=== PATIENT | female | born 1990 | race Caucasian/White ===

== ENCOUNTER 2023-06-15 10:55 | Outpatient (CLI) | payer BC, SELFPAY | END 2023-06-15 10:56 | disposition home or self-care (01) | PROVIDERS: PCP Nurse Practitioner Family; Visit Provider Nurse Practitioner Family | DX: Z00.00 Encounter for general adult medical examination without abnormal findings (principal); R20.2 Paresthesia of skin; M79.601 Pain in right arm; M79.602 Pain in left arm | CPT/HCPCS: 82607; 82947; 84443 ==

== ENCOUNTER 2023-12-03 13:39 | Outpatient (CLI) | payer BC, SELFPAY ==
--- OUTSIDE RECORDS SUMMARY | 2023-12-03 13:46 | XMS_ITS | Referral Summary ---
Author Name Unknown Organization [facility] Address [address] [place] [address] Care Team Providers Care Retail Wireless Associate Name Role Phone Tk Pisano M.D. Primary Care Provider [phone] [phone] Source Comments Patient records contain information from all sites at [facility]. For routine questions regarding patient records, call [phone] during business hours, M-F 8:00 AM - 5:00 PM Central Time. Record requests for emergency care only can be directed to [phone] at any time.[facility] Allergies Active Allergy Reactions Criticality Noted Date Comments Amoxicillin Hives (Reselect Reaction) Low 03/02/2011 Converted from Generic Allergy: Amoxicillin Peanut Hives (Reselect Reaction) Low 06/16/2017 throat becomes scratchy with eating peanut butter when living in [place] Penicillins Hives (Reselect Reaction) Low 03/02/2011 Medications Medication Sig Dispensed Refills Start Date End Date Status valACYclovir (VALTREX) 1000 mg tablet TAKE TWO TABLETS BY MOUTH EVERY 12 HOURS FOR ONE DAY ONLY. START AT ONSET OF COLD SORE SYMPTOMS 12 tablet 4 06/19/2022 Active Sprintec, 28, 0.25-35 mg-mcg per tablet TAKE ONE TABLET BY MOUTH EVERY DAY 84 tablet 4 05/29/2023 Active Active Problems Problem Noted Date Diagnosed Date Herpes Simplex Labialis 05/08/2020 Overview: 04/2020: Rare occurrences. Carpal Tunnel Syndrome Bilateral 03/12/2020 Resolved Problems Problem Noted Date Diagnosed Date Resolved Date Pain Shoulder Right 05/10/2020 05/29/20 21 Overview: 04/2020: Ortho, possible labrum. Start with PT, consider MRI 04/2020: Right shoulder overhead throwing pain x 6 months. Plays volleyball, softball. Ortho consult. Subdermal Contraceptive Device Status 05/08/2020 06/18/2022 Overview: 03/2019 Nexplanon Placed. Abnormal Laboratory Results 05/08/2020 05/29/2021 Overview: 10/2019: Hep B Core Total Ab Positive Hep B Surf ab Positive Hep B surf ag negative Hep B core IgM negative 04/2020: Confirmed w/ GI-- she likely has a false positive hep B test or less likely a resolved prior hep B infection. Can't likely donate blood. Could consider Hep B DVA testing (would be truly positive if patient had hep B infection in the past few years. If years ago, may not be positive). Prevailing wisdom is that a resolved hep B infection doesn't impact future health. 10/2019: Turned away from blood donation for hep B screening positive. Came to [facility] [place] more testing. Immunizations Name Administration Dates Next Due 4vHPV (discontinued) 01/25/2010,08/27/2009,06/27 DTaP (Infanrix, Tripedia) 04/28/1997,,1992,1991,1992 HepA Adult 11/14/2015 HepA Pediatric/Adolescent 03/28/2009 HepB, Unspecified 04/28/1997,10/04/1996,09/01/19 96 Hib (PRP-OMP) (PedvaxHIB) 07/16/1993,,1992,1991 IPV 04/28/1997, 3,1992,1991 Influenza, Injectable, Quadrivalent 09/10/2020 Influenza, Unspecified 10/07/2019,2014,11/21/2013,2012 MMR 04/28/1997,07/16/1993 SARS-COV-2 (COVID-19) - MODERNA 10/21/2021 Td (Adult), adsorbed 09/06/2003 Tdap 06/30/2013 MAY 07/19/2009,12/03/1995 influenza vaccine quad (FLUZONE/FLUARIX) (6 months and older)(PF) 09/23/2021,09/20/2019,09/25/2018 typhoid vaccine, parenteral (discontinued) 05/19/2016 Social History Tobacco Use Types Packs/Day Years Used Date Smoking Tobacco: Never Smokeless Tobacco: Never Alcohol Use Standard Drinks/Week Comments Yes 2 (1 standard drink = 0.6 oz pur e alcohol) Humiliation, Afraid, Rape, and Kick questionnair e Answer Date Recorded Within the last year, have y ou been afraid of your partner or ex-partner? No 11/06/2022 Within the last year, have y ou been humiliated or emotionally abused in other ways by your partner or ex-partner? No Within the last year, have y ou been kicked, hit, slapped, or otherwise physically hurt by your partner or ex-partner? No 11/06/2022 Within the last year, have y ou been raped or forced to have any kind of sexual activity by your partner or ex-partner? No 11/06/2022 Social Connection and Isolat ion Panel [NHANES] Answer Date Recorded In a typical week, how many times do you talk on the phone with family, friends, or neighbors? More than three times a week 11/06/2022 How often do you get togethe r with friends or relatives? Once a week 11/06/2022 How often do you attend chur or mosque services? 1 to 4 times per year 11/06/2022 Do you belong to any clubs o r organizations such as congregational groups, unions, fraternal or athletic groups, or school groups? Yes 11/06/2022 How often do you attend meet ings of the clubs or organizations you belong to? More than 4 times per year 11/06/2022 Are you , , di vorced, , never , or living with a partner? Living with partner 11/06/2022 AUDIT-C Answer Date Recorded Q1: How often do you have a drink containing alc ohol? 2-4 times a month 11/06/2022 Q2: How many drinks containi ng alcohol do you have on a typical day when you are drinking? 1 or 2 11/06/2022 Q3: How often do you have si x or more drinks on one occasion? Less than monthly 11/06/2022 Overall Financial Resource Strain (CARDIA) Answe r Date Recorded How hard is it for you to pa y for the very basics like food, housing, medical care, and heating? Somewhat hard 11/06/2022 PHQ-2 Answer Date Recorded PHQ-2 Score 0 01/16/2022 [facility] - Occupational Stress Questionnaire Answer Date Recorded Do you feel stress - tense, restless, nervous, or anxious, or unable to sleep at night because your mind is troubled all the time - these days? Not at all 11/06/2022 Exercise Vital Sign Answer Date Recorde d On average, how many days pe r week do you engage in moderate to strenuous exercise (like a brisk walk)? 7 days 11/06/2022 On average, how many minutes do you engage in exercise at this level? 60 min 11/06/2022 Hunger Vital Sign Answer Date Recorded Within the past 12 months, y ou worried that your food would run out before you got the money to buy more. Never true 11/06/20 22 Within the past 12 months, t he food you bought just didn't last and you didn't have money to get more. Never true 11/06/2022 PRAPARE - Transportation Answer Date Re corded In the past 12 months, has l ack of transportation kept you from medical appointments or from getting medications? No 10/23 In the past 12 months, has l ack of transportation kept you from meetings, work, or from getting things needed for daily living? No 11/06/2022 Housing Stability Vital Sign Answer Oziel e Recorded In the last 12 months, was t here a time when you were not able to pay the mortgage or rent on time? No 11/06/2022 In the last 12 months, how many places have you lived? 1 11/06/2022 In the last 12 months, was t here a time when you did not have a steady place to sleep or slept in a mcc (including now)? No 11/06/2022 Nutrition Answer Date Recorded Nutrition: EVOO Fat Source No 11/06 On average, how many serving s of fruits and vegetables do you eat per day (serving size is equal to 1 cup or approximately the size of a tennis ball)? 4-5 11/06/2022 Dental Answer Date Recorded Dental: Regular Dentist Yes 05/28/20 Employment Answer Date Recorded Employment status Employed and actively working without restrictions 11/06/2022 Education Answer Date Recorded What is the highest level of school you have completed or the highest degree you have received? Master's degree (e.g., MA, MS, Armando, MEd, FIELD CARE MANAGER, VLAD) 10/20/2022 Sex and Gender Information Value Date Recorded Sex Assigned at Female 06/07/2018 4:00 PM CDT Gender Identity Female 06/07/2018 4:00 PM CDT Sexual Orientation Straight 06/07/2018 4: 00 PM CDT Last Filed Vital Signs Vital Sign Reading Time Taken Comments Blood Pressure 132/78 09/23/2022 7:54 AM CDT Pulse 56 09/23/2022 7:54 AM CDT Temperature 36.2 ??C (97.2 ??F) 09/23/2022 7:54 AM CD T Respiratory Rate 18 03/12/2020 1:23 PM CDT Oxygen Saturation 99% 01/16/2022 3:35 PM REVENUE AGENT Inhaled Oxygen Concentration - - Weight 85.1 kg (187 lb 9.8 oz) 09/23/2022 7:54 A M CDT Height 178.1 cm (5' 10.12) 09/23/2022 7:54 AM C DT Body Mass Index 26.83 09/23/2022 7:54 AM CDT Plan of Treatment Not on file Care Teams Retail Wireless Associate Relationship Specialty Start Date End Date Tk Pisano M.D. [address] [place] [address] PCP - General 03/02/23
--- OUTSIDE RECORDS SUMMARY | 2023-12-03 13:46 | XMS_ITS | Clinical Summary ---
Author Name Unknown Organization [facility] Address [address] [place] [address] Care Team Providers Care Body Shop Mechanic Name Role Phone Tk Pisano M.D. Primary Care Provider [phone] Source Comments Patient records contain information from all sites at [facility]. For routine questions regarding patient records, call [phone] during business hours, M-F 8:00 AM - 5:00 PM Central Time. Record requests for emergency care only can be directed to [phone] at any time.[facility] Allergies Active Allergy Reactions Criticality Noted Date [...] for hep B screening positive. [place] [facility] [place]. Immunizations Name Administration Dates [...] older)(PF) 09/23/2021,09/20/2019,09/25/2018 typhoid vaccine, parenteral (discontinued) 05/19/2016 Family History Medical History Relation Name Comments Hyperlipidemia Father Robbin Zaidi Hypertension Father Robbin Zaidi Obesity Father Robbin Zaidi Arthritis Maternal Grandfather Nolan Staloch Parkinsonism Maternal Grandfather Nolan [place] Rheum arthritis Maternal Grandmother Yaakov [place] Alcohol abuse Mother Joanne Zaidi Anxiety disorder Mother Joanne Zaidi Depression Mother Joanne Zaidi Coronary artery disease Paternal Grandfather Michael La tus[place] Diabetes Paternal Grandfather Michael [place] Seizures Paternal Grandfather Michael Zaidi Breast cancer Paternal Grandmother Charleen Zaidi 65 Coronary artery disease Paternal Grandmother Charleen [place] Migraines Paternal Grandmother Charleen Zaidi Relation Name Status Comments Father Robbin [place] Maternal Grandfather Nolan Santosloch Maternal Grandmother Yaakov [place] Mother Joanne Zaidi Paternal Grandfather Michael Zaidi Paternal Grandmother Charleen Zaidi Social History Tobacco Use Types Packs/Day Years [...] 11/06/2022 How often do you attend chur ch or confucianist services? 1 to 4 times per year 11/06/2022 Do you belong to any clubs o r organizations such as protestant groups, unions, fraternal or athletic groups, or [...] Answer Date Recorded PHQ-2 Score 0 01/16/2022 [facility]ational [facility] Questionnaire Answer Date Recorded [...] place to sleep or slept in a halfway (including now)? No 11/06/2022 Nutrition Answer Date Recorded Nutrition: EVOO Fat Source No 11/06 On average, how many serving s of fruits and vegetables do you eat per day (serving size is equal to 1 cup or approximately the size of a tennis ball)? 4-5 11/06/2022 Dental Answer Date Recorded Dental: Regular Dentist Yes 05/28/20 21 Employment Answer Date Recorded Employment status Employed and actively working without restrictions 11/06/2022 Education Answer Date Recorded What is the highest level of school you have completed or the highest degree you have received? Master's degree (e.g., MA, MS, Armando, MEd, HIGH SCHOOL MATH TEACHER, VLAD) 10/20/2022 Sex and Gender Information Value [...] CDT Oxygen Saturation 99% 01/16/2022 3:35 PM CLIENT SERVER PROGRAMMER Inhaled Oxygen Concentration - - Weight 85.1 kg (187 lb 9.8 oz) 09/23/2022 7:54 A M CDT Height 178.1 cm (5' 10.12) 09/23/2022 7:54 AM C DT Body Mass Index 26.83 09/23/2022 7:54 AM CDT Plan of Treatment Health Maintenance Due Date Last Done Comments Cervical Cancer Screening 06/19/20232021, 06/19/2022, 05/30/2021, Additional history exists COVID-19 Vaccine ( season) 2023 09/24/2022, 10/21/2021, 02/14/2021, Additional history exists Influenza Vaccine (#1) 2023 , 09/23/2021, 09/10/2020, Additional history exists Depression Screening (Annual PHQ-2) 11/23/2023 DTaP,Tdap,and Td Vaccines (8 - Td or Tdap) 06/15/2033 06/15/2023, 06/30/2013, 09/06/2003, Additional history exists Hepatitis B Vaccines Completed 04/28/1997, 10/04/1996, 09/01/1996 HPV Vaccines Completed 01/25/2010, 03/2009, 06/27/2009 HIV Screening Completed 05/08/2020, 03/23, 06/07/2018 Hepatitis C Screening Completed 05/08/2020 Pneumococcal vaccine (0-64 years) Aged Out No longer eligible based on patient's age to complete this topic Care Teams Body Shop Mechanic Relationship Specialty Start Date End Date Tk Pisano M.D. [address] [place] [phone] PCP - General 03/02/23
--- OUTSIDE RECORDS SUMMARY | 2023-12-03 13:47 | XMS_ITS | Encounter Summary ---
Author Name Unknown Organization [facility] Address [address] [place] [address] Care Team Providers Care Information Clerk Brokerage Name Role Phone Tk Pisano M.D. Primary Care Provider [phone] [phone] Reason for Referral * Outpatient (Routine) - Authorized Specialty Diagnoses / Procedures Referred By Fred t Referred To Contact Family Medicine Tk Pisano M.D. [address] [place] [address] [facility] Referral ID Status Reason Start Date Expiration Date V isits Requested Visits Authorized [id number] Authorized 06/02/2023 06/01/2026 1 1 Encounter Details Date Type Department Care Team (Late st Contact Info) Description 06/02/2023 Orders Only [facility] Tk Pisano M.D. [address] [place] [address] Social History Tobacco Use Types Packs/Day Years [...] often do you attend chur ch or uatsdin services? 1 to 4 times per year 11/06/2022 Do you belong to any clubs o r organizations such as yazidi groups, unions, fraternal or athletic groups, or [...] Answer Date Recorded PHQ-2 Score 0 01/16/2022 [facility] of Occupat ional Health - Occupational Stress [...] place to sleep or slept in a fpc (including now)? No 11/06/2022 Nutrition Answer Date [...] Master's degree (e.g., MA, MS, Armando, MEd, ENTERPRISE SOFTWARE DEVELOPER, VLAD) 10/20/2022 Sex and Gender Information Value Date Recorded Sex Assigned at Female 06/07/2018 4:00 PM CDT Gender Identity Female 06/07/2018 4:00 PM CDT Sexual Orientation Straight 06/07/2018 4: 00 PM CDT documented as of this encounter Plan of Treatment Scheduled Referrals Name Type Priority Associated Diagnoses Orde r Schedule Family Medicine office visit (clinic) Outpatient Referral Routine Expected: 06/16/2023, Expires: 11/29/2023 documented as of this encounter Visit Diagnoses Not on filedocumented in this encounter Care Teams Information Clerk Brokerage Relationship Specialty Start Date End Date Tk Pisano M.D. [address] [place] [phone] PCP - General 03/02/23 documented as of this encounter
--- OUTSIDE RECORDS SUMMARY | 2023-12-03 13:47 | XMS_ITS ---
Author Name Unknown Organization [facility] Address [address] [place] [address] Care Team Providers Care Office Correspondent Name Role Phone Unavailable Unavailable Unavailable Surgery Details Not on file Complications Check Surgery Details section. Procedure Estimated Blood Loss Check Surgery Details section. Procedure Findings Check Surgery Details section. Procedure Specimens Taken Check Surgery Details section.
--- OUTSIDE RECORDS SUMMARY | 2023-12-03 13:47 | XMS_ITS | Encounter Summary ---
Author Name Unknown Organization [facility] Address [address] [place] [address] Care Team Providers Care Patient Care Technician Name Role Phone Michelle Ramos M.D. Primary Care Provider [phone] Reason for Visit * Reason Onset Date Comments Vomiting/Diarrhea 01/10/2023 Encounter Details Date Type Department Care Team (Late st Contact Info) Description 01/10/2023 Nurse Triage Department of Family Medicine, [facility], in [address] [phone] Paider, Tanesha Armendariz R.N. [address] [place] [phone] Vomiting/Diarrhea Social History Tobacco Use Types Packs/Day Years [...] How often do you attend chur or hindu services? 1 to 4 times per year 11/06/2022 Do you belong to any clubs o r organizations such as pentecostalism groups, unions, fraternal or athletic groups, or [...] Answer Date Recorded PHQ-2 Score 0 01/16/2022 [facility] of Occupat ional Health - Occupational Stress [...] place to sleep or slept in a fdc (including now)? No 11/06/2022 Nutrition Answer Date [...] Master's degree (e.g., MA, MS, Armando, MEd, AUTOMOTIVE SALES ASSOCIATE, VLAD) 10/20/2022 Sex and Gender Information Value Date Recorded Sex Assigned at Female 06/07/2018 4:00 PM CDT Gender Identity Female 06/07/2018 4:00 PM CDT Sexual Orientation Straight 06/07/2018 4: 00 PM CDT documented as of this encounter Miscellaneous Notes * Telephone Encounter - Paider, Tanesha Armendariz R.N. - 01/10/2023 2:52 PM CONSULTING INTERN Chief Complaint / Reason for Call Patient is a 32 y.o. female calling regarding Vomiting/Diarrhea. 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 She had vomiting for the first 24 hours followed by abdominal cramping and loose stools since. Present for: 6 days Home cares tried: None noted Calling to request: Advice The recommended disposition is No disposition on file.. Reason for Disposition MILD-MODERATE diarrhea (e.g., 1-6 times / day more than normal) Protocols used: [id number] Care Advice Patient/Caregiver understands and will follow care advice?: Yes, able to teach back HOME CARE: * You should be able to treat this at home. REASSURANCE AND EDUCATION - DIARRHEA: * Diarrhea may caused by a virus ('stomach flu') or a bacteria. Diarrhea is one of the body's way of getting rid of germs. * Certain foods (e.g., dairy products, supplements like Ensure) can also trigger diarrhea. * In some people, the exact cause is never found. * Staying well-hydrated is the most important thing if you have diarrhea. From what you have told me, it sounds like you are not severely dehydrated at this point. * Here is some general care advice that should help. FLUID THERAPY DURING MILD TO MODERATE DIARRHEA: * Drink more fluids, at least 8 to 10 cups daily. One cup equals 8 oz (240 ml). * WATER: For mild to moderate diarrhea, water is often the best liquid to drink. You should also eat some salty foods (e.g., potato chips, pretzels, saltine crackers). This is important to make sure you are getting enough salt, sugars, and fluids to meet your body's needs. * SPORTS DRINKS: You can also drink half-strength sports drinks (e.g., Gatorade, Powerade) to help treat and prevent dehydration. Mix the sports drink half and half with water. * Avoid caffeinated beverages. Reason: Caffeine is mildly dehydrating. * Avoid alcohol beverages (e.g., beer, wine, hard liquor). * Avoid carbonated soft drinks (soda) as these can make your diarrhea worse. FOOD AND NUTRITION DURING MILD TO MODERATE DIARRHEA: * Maintaining some food intake during episodes of diarrhea is important. * Begin with boiled starches / cereals (e.g., potatoes, rice, noodles, wheat, oats) with a small amount of salt to taste. * You can also eat bananas, yogurt, crackers, soup. * Eat smaller meals and snacks more often during the day rather than 3 larger meals. * As the diarrhea starts to get better, you can slowly return to a normal diet. * AVOID milk and dairy products if these make your diarrhea worse. * AVOID greasy, fatty or spicy foods. DIARRHEA MEDICINE - LOPERAMIDE (IMODIUM AD): * This medicine helps decrease diarrhea. It is available [id number] (OTC) in a drugstore. * Adult dosage: 4 mg (2 capsules) is the recommended first dose. You may take an additional 2 mg (1capsule) after each loose stool. * Maximum dosage: 16 mg per day (8 capsules). * Do not use for more than 2 days. DIARRHEA MEDICINE - LOPERAMIDE - EXTRA NOTES AND WARNINGS: * DO NOT use if there is a fever over 100.4 F (38.0 C) or if there is blood or mucus in the stools. * DO NOT drink tonic water. It can interact with loperamide and may cause a serious heart problems. * Before taking any medicine, read all the instructions on the package. DIARRHEA MEDICINE - BISMUTH SUBSALICYLATE (E.G., KAOPECTATE, PEPTO-BISMOL): * This medicine can help reduce diarrhea, vomiting, and abdominal cramping. It is available [id number]-tyt-yunmnml (OTC) in a drugstore. * Adult dosage: Take two tablets or two tablespoons by mouth every hour (if diarrhea continues) to a maximum of 8 doses in a 24 hour period. * Do not use for more than 2 days. DIARRHEA MEDICINE - BISMUTH SUBSALICYLATE - EXTRA NOTES AND WARNINGS: * May cause a temporary darkening of stool and tongue. * Do not use if allergic to aspirin. * Do not use in . * Before taking any medicine, read all the instructions on the package. CONTAGIOUSNESS: * Wash your hands after using the bathroom. * Wash your hands before fixing or eating food. * If your work is cooking, handling, serving, or preparing food, then you should not work until Do he diarrhea has completely stopped. Check with your employer before going back to work. * Wash soiled towels, sheets, or clothes separately. * Do not share towels or sheets. * Do not swim for 2 weeks after diarrhea is gone. EXPECTED COURSE: * Viral diarrhea lasts 4 to 7 days. * It is usually worse on days 1 and 2. CALL BACK IF: * Signs of dehydration occur (e.g., no urine over 12 hours, very dry mouth, lightheaded, etc.) * Diarrhea lasts over 7 days * You become worse CARE ADVICE given per Diarrhea (Adult) guideline. ULTING INTERN documented in this encounter Plan of Treatment Not on file documented as of this encounter Visit Diagnoses Not on filedocumented in this encounter Care Teams Patient Care Technician Relationship Specialty Start Date End Date Michelle Ramos M.D. PCP - General Family Medicine 04/06/19 03/01/23 documented as of this encounter
--- OUTSIDE RECORDS SUMMARY | 2023-12-03 13:47 | XMS_ITS | Encounter Summary ---
Author Name Unknown Organization [facility] Address [address] [place] [address] Care Team Providers Care Wrapper Hands Sprayer Name Role Phone Tk Pisano M.D. Primary Care Provider [phone] Reason for Visit * Reason Comments Med Refill Encounter Details Date Type Department Care Team (Late st Contact Info) Description 05/27/2023 Refill Department of Family Medicine, [facility], in [address] [phone] Michelle Ramos M.D. [facility] [place] [phone] Med Refill Social History Tobacco Use Types Packs/Day Years [...] week 11/06/2022 How often do you attend [facility] or sikh services? 1 to 4 times per year 11/06/2022 Do you belong to any clubs o r organizations such as baptist groups, unions, fraternal or athletic groups, or [...] Answer Date Recorded PHQ-2 Score 0 01/16/2022 [facility] of Occupat ional Health - Occupational Stress [...] place to sleep or slept in a chcf (including now)? No 11/06/2022 Nutrition Answer Date [...] Master's degree (e.g., MA, MS, Armando, MEd, VOCATIONAL COORDINATOR, VLAD) 10/20/2022 Sex and Gender Information Value Date Recorded Sex Assigned at Female 06/07/2018 4:00 PM CDT Gender Identity Female 06/07/2018 4:00 PM CDT Sexual Orientation Straight 06/07/2018 4: 00 PM CDT documented as of this encounter Plan of Treatment Not on file documented as of this encounter Visit Diagnoses Not on filedocumented in this encounter Care Teams Wrapper Hands Sprayer Relationship Specialty Start Date End Date Tk Pisano M.D. [address] [place] [phone] PCP - General 03/02/23 documented as of this encounter
== END 2023-12-03 13:40 | disposition home or self-care (01) ==
PROVIDERS: PCP Nurse Practitioner Family; Visit Provider Obstetrics & Gynecology
DX: Z34.91 Encounter for supervision of normal pregnancy, unspecified, first trimester (principal); Z3A.10 10 weeks gestation of pregnancy
CPT/HCPCS: 84702; 86850; 86900; 86901

== ENCOUNTER 2023-12-04 13:11 | Outpatient (CLI) | payer BC, SELFPAY ==
--- NOTE | 2023-12-04 13:00 | CRLHL7_ITS ---
For Patients: As a result of the Cures Act, medical imaging exams and procedure reports are released immediately into your electronic medical record. You may view this report before your referring provider. If you have questions, please contact your health care provider. INDICATION: Bleeding in early . LMP 10/17/2023. COMPARISON: None. TECHNIQUE: Real-time cobb-scale imaging of the pelvis was performed. FINDINGS: Sonographic imaging demonstrates a single living intrauterine gestation. The embryo has a regular cardiac rate measuring 173 beats per minute. The embryo`s crown-rump length measurement of 3.6 cm corresponds to a gestational age of 10 weeks 3 days with a sonographic due date of 06/28/2024. There is a normal-appearing yolk sac. The placenta has not yet developed. There is a 2.9 x 1.3 x 1.4 cm subchorionic hemorrhage in the right uterus. The right ovary measures 3.0 x 2.1 x 2.0 cm and the left ovary measures 3.0 x 1.7 x 2.1 cm. No free fluid in the cul-de-sac. IMPRESSION: 1. Single living intrauterine gestation with crown rump length 3.6 cm which corresponds to a gestational age of 10 weeks 3 days with a sonographic due date of 06/28/2024. 2. The clinical gestational age by LMP is 6 weeks 6 days. 3. Small to moderate sized subchorionic hemorrhage. Dictated by Sravani Subramanian MD @ 12/06/2023 12:11:58 AM (Electronically Signed)
== END 2023-12-04 13:12 | disposition home or self-care (01) ==
LOC: US 13:12
PROVIDERS: PCP Nurse Practitioner Family; Visit Provider Advanced Practice Midwife
DX: O20.9 Hemorrhage in early pregnancy, unspecified (principal); Z3A.01 Less than 8 weeks gestation of pregnancy
CPT/HCPCS: 76817; 86592; 86703; 86704; 86706; 86762; 86787; 86803; 86850; 86900; 86901; 87086; 87340; 87491; 87591

== ENCOUNTER 2024-02-02 14:46 | Outpatient (CLI) | payer BC, SELFPAY ==
--- NOTE | 2024-02-02 15:00 | US_ITS ---
Patient: DORCAS VARGAS Facility:?[facility] Patient ID:?[id number] Site Patient ID:?[id number]. Site :?1990 Study:?US-OB Pelvis OB>14WKS-02/02/2024 4:31:12 PM Ordering Physician:Mayda Chow Final Report: INDICATION: Evaluate anatomy. COMPARISON: 12/04/2023 TECHNIQUE: Real time cobb scale imaging of the fetus was performed as well as color Doppler analysis of the umbilical vessels. FINDINGS: Sonographic imaging demonstrates a single living intrauterine gestation. Fetus demonstrates a regular cardiac rate of 152 beats per minute. Fetus has a cephalic position. The placenta lies anteriorly without evidence of placenta previa. The placenta is bilobed. Placental edge 7.2 cm from the internal cervical os. Amniotic fluid volume appears normal. Single deepest vertical pocket: 4.0 cm. The cervix is closed and measures 3.9 cm in length. The composite ultrasound gestational age is calculated at 19 weeks 3 days with an estimated sonographic due date of 06/25/2024. The estimated weight is 289 grams which lies at the 68th %. The following biometric measurements were obtained: Biparietal diameter: 4.5 cm/19 weeks 5 day 80th% Head circumference: 17.0 cm/19 weeks 4 days 72nd% Abdominal circumference: 13.9 cm/19 weeks 2 days 56th% Femur length: 3.0 cm/19 weeks 3 days 57th% The HC/AC ratio measures: 1.22 range (1.08-1.26) On anatomic survey, there is a normal appearance of the cerebral ventricles, cavum septi pellucidi, cisterna magna and cerebellum. The nose, lips, and facial profile appear normal. The cervical, thoracic and lumbar spine are well visualized and appear normal. There is a normal four-chamber heart view and the left and right ventricular outflow tracts appear normal. The diaphragm and stomach appear normal. The kidneys and bladder also appear normal. There is a normal three-vessel cord and cord insertion site. The four extremities appear normal. IMPRESSION: Normal OB ultrasound exam with concordance of clinical and sonographic dating. No intrinsic abnormalities noted on anatomic survey. Dictated by Alexander Baltazar MD @ 02/03/2024 9:34:07 AM Signed by:?Alexander Baltazar MD @02/03/2024 9:34:07 AM (Electronic Signature)
== END 2024-02-02 14:47 | disposition home or self-care (01) ==
LOC: US 14:47
PROVIDERS: PCP Nurse Practitioner Family; Visit Provider Obstetrics & Gynecology
DX: Z34.92 Encounter for supervision of normal pregnancy, unspecified, second trimester (principal); Z3A.19 19 weeks gestation of pregnancy
CPT/HCPCS: 76805

== ENCOUNTER 2024-03-02 13:49 | Outpatient (CLI) | payer BC, SELFPAY ==
--- OUTSIDE RECORDS SUMMARY | 2024-03-02 13:50 | XMS_ITS | Clinical Summary ---
Author Name Unknown Organization [facility] Address [address] [place] [address] Care Team Providers Care Machinist Wood Name Role Phone Tk Pisano M.D. Primary Care Provider [phone] [phone] Source Comments Patient records contain information from all sites at [facility]. For routine questions regarding patient records, call [phone] during business hours, M-F 8:00 AM - 5:00 PM Central Time. Record requests for emergency care only can be directed to [phone] at any time.[facility] Allergies Active Allergy Reactions Criticality Noted Date Comments Amoxicillin Hives (Reselect Reaction) Low 03/02/2011 Converted from Generic Allergy: Amoxicillin Peanut Hives (Reselect Reaction) Low 06/16/2017 throat becomes scratchy with eating peanut butter when living in [place] Penicillins Hives (Reselect Reaction) Low 03/02/2011 [...] for hep B screening positive. Came to [facility] for more testing. Encounters Date Type Department Care Team Description 02/23/2024 Orders Only [facility] PCP TH MNT Tk Pisano M.D. 01/18/2024 Orders Only Division of Gastroenterology in [place], [place] [address] [place] [address] Kushal Conti M.D. Genetic Susceptibility To Disease from Last 3 Months Immunizations Name Administration Dates Next Due 4vHPV (discontinued) 01/25/2010,08/27/2009,06/27 DTaP (Infanrix, Tripedia) 04/28/1997,,1992,1991,1992 HepA Adult 11/14/2015 HepA Pediatric/Adolescent 03/28/2009 HepB, Unspecified 04/28/1997,10/04/1996,09/01/19 96 Hib (PRP-OMP) (PedvaxHIB) 07/16/1993,,1992,1991 IPV 04/28/1997, 3,1992,1991 Influenza, Injectable, Quadrivalent 09/10/2020 Influenza, Unspecified 10/07/2019,2014,11/21/2013,2012 MMR 04/28/1997,07/16/1993 SARS-COV-2 (COVID-19) - MODERNA(Discontinued) 10/21/2021 Td (Adult), adsorbed 09/06/2003 Tdap 06/30/2013 MAY 07/19/2009,12/03/1995 influenza vaccine quad (FLUZONE/FLUARIX) (6 months and older)(PF) 09/23/2021,09/20/2019,09/25/2018 typhoid vaccine, parenteral (discontinued) 05/19/2016 Family History Medical History Relation Name Comments Hyperlipidemia Father Robbin Zaidi Hypertension Father Robbin Zaidi Obesity Father Robbin Zaidi Arthritis Maternal Grandfather Nolan [place] Parkinsonism Maternal Grandfather Nolan [place] Rheum arthritis Maternal Grandmother Yaakov [place] Alcohol abuse Mother Joanne Zaidi Anxiety disorder Mother Joanne Zaidi Depression Mother Joanne Zaidi Coronary artery disease Paternal Grandfather Michael La t[place] Diabetes Paternal Grandfather Michael [place] Seizures Paternal Grandfather Michael Zaidi Breast cancer Paternal Grandmother Charleen Zaidi 65 Coronary artery disease Paternal Grandmother Charleen [place] Migraines Paternal Grandmother Charleen Zaidi Relation Name Status Comments Father Robbin Zaidi Maternal Grandfather Nolan Garciach Maternal Grandmother Yaakov Garciach Mother Joanne Latusek Paternal Grandfather Michael Latusek Paternal Grandmother Charleen Zaidi Social History Tobacco [...] week 11/06/2022 How often do you attend [facility] or jehovah's witness services? 1 to 4 times per year 11/06/2022 Do you belong to any clubs o r organizations such as sikhism groups, unions, fraternal or athletic groups, or [...] Answer Date Recorded PHQ-2 Score 0 01/16/2022 [facility] of Occupat ional Health - Occupational Stress [...] place to sleep or slept in a detention (including now)? No 11/06/2022 Nutrition Answer Date [...] Master's degree (e.g., MA, MS, Armando, MEd, CUSTOM SKI MAKER, VLAD) 10/20/2022 Sex and Gender Information Value [...] CDT Oxygen Saturation 99% 01/16/2022 3:35 PM HOME ENERGY RATER Inhaled Oxygen Concentration - - Weight 85.1 [...] age to complete this topic Care Teams Machinist Wood Relationship Specialty Start Date End Date Tk Pisano M.D. [address] [place] [address] PCP - General 03/02/23
--- OUTSIDE RECORDS SUMMARY | 2024-03-02 13:51 | XMS_ITS | Encounter Summary ---
Author Name Unknown Organization [facility] Address [address] [place] [address] Care Team Providers Care Construction Representative Name Role Phone Tk Pisano M.D. Primary Care Provider [phone] [phone] Reason for Referral * Outpatient (Routine) - Authorized Specialty Diagnoses / Procedures Referred By Fred t Referred To Contact Family Medicine Tk Pisano M.D. [address] [place] [address] [facility] Referral ID Status Reason Start Date Expiration Date V isits Requested Visits Authorized [id number] Authorized 02/23/2024 08/24/2025 1 1 Encounter Details Date Type Department Care Team (Late st Contact Info) Description 02/23/2024 Orders Only [facility] PCP [facility] MNT Tk Pisano M.D. [address] [place] [address] Social History Tobacco Use Types [...] often do you attend chur ch or buddhist services? 1 to 4 times per year 11/06/2022 Do you belong to any clubs o r organizations such as sabianist groups, unions, fraternal or athletic groups, or [...] Answer Date Recorded PHQ-2 Score 0 01/16/2022 [facility] [place] of Occupat ional Health - Occupational Stress [...] place to sleep or slept in a [place] care facility (including now)? No 11/06/2022 Nutrition Answer Date [...] Master's degree (e.g., MA, MS, Armando, MEd, GROUP ACTIVITIES AIDE, VLAD) 10/20/2022 Sex and Gender Information Value Date Recorded Sex Assigned at Female 06/07/2018 4:00 PM CDT Gender Identity Female 06/07/2018 4:00 PM CDT Sexual Orientation Straight 06/07/2018 4: 00 PM CDT documented as of this encounter Plan of Treatment Scheduled Referrals Name Type Priority Associated Diagnoses Orde r Schedule Family Medicine office visit (clinic) Outpatient Referral Routine Expected: 03/08/2024, Expires: 08/21/2024 documented as of this encounter Visit Diagnoses Not on filedocumented in this encounter Care Teams Construction Representative Relationship Specialty Start Date End Date Tk Pisano M.D. [address] [place] [phone] PCP - General 03/02/23 documented as of this encounter
--- OUTSIDE RECORDS SUMMARY | 2024-03-02 13:51 | XMS_ITS | Referral Summary ---
Author Name Unknown Organization [facility] Address [address] [place] [address] Care Team Providers Care Supervisor Quality Control Name Role Phone Tk Pisano M.D. Primary Care Provider [phone] [phone] Source Comments Patient records contain information from all sites at [facility]. For routine questions regarding patient records, call [phone] during business hours, M-F 8:00 AM - 5:00 PM Central Time. Record requests for emergency care only can be directed to [phone] at any time.[facility] Encounters Date Type Department Care Team Description 02/23/2024 Orders Only [facility] Tk Cooper M.D. 01/18/2024 Orders Only Division of Gastroenterology in [place], [place] [address] [place] [address] Kushal Conti M.D. Genetic Susceptibility To Disease from Last 3 Months Allergies Active Allergy Reactions Criticality Noted Date Comments Amoxicillin Hives (Reselect Reaction) Low 03/02/2011 Converted from Generic Allergy: Amoxicillin Peanut Hives (Reselect Reaction) Low 06/16/2017 throat becomes scratchy with eating peanut butter when living in [place] Penicillins Hives (Reselect Reaction) Low 03/02/2011 [...] Resolved Date Pain Shoulder Right 05/10/2020 05/29/20 Overview: 04/2020: Ortho, possible labrum. Start with [...] for hep B screening positive. Came to [facility] for more testing. Immunizations Name Administration Dates [...] week 11/06/2022 How often do you attend [facility] or yarsanism services? 1 to 4 times per year 11/06/2022 Do you belong to any clubs o r organizations such as rastafari groups, unions, fraternal or athletic groups, or [...] Answer Date Recorded PHQ-2 Score 0 01/16/2022 [facility] of Occupat ional Health - Occupational [...] place to sleep or slept in a alf (including now)? No 11/06/2022 Nutrition Answer Date [...] Master's degree (e.g., MA, MS, Armando, MEd, SKIP MINER BLASTING, VLAD) 10/20/2022 Sex and Gender Information Value [...] CDT Oxygen Saturation 99% 01/16/2022 3:35 PM LEVEL VIAL SETTER Inhaled Oxygen Concentration - - Weight 85.1 kg (187 lb 9.8 oz) 09/23/2022 7:54 A M CDT Height 178.1 cm (5' 10.12) 09/23/2022 7:54 AM C DT Body Mass Index 26.83 09/23/2022 7:54 AM CDT Plan of Treatment Not on file Care Teams Supervisor Quality Control Relationship Specialty Start Date End Date Tk Pisano M.D. [address] [place] [phone] PCP - General 03/02/23
--- OUTSIDE RECORDS SUMMARY | 2024-03-02 13:51 | XMS_ITS ---
Author Name Unknown Organization [facility] Address [address] [place] [address] Care Team Providers Care Bonding And Composite Fabricator Name Role Phone Unavailable Unavailable Unavailable Surgery Details Not on file Complications Check Surgery Details section. Procedure Estimated Blood Loss Check Surgery Details section. Procedure Findings Check Surgery Details section. Procedure Specimens Taken Check Surgery Details section.
--- OUTSIDE RECORDS SUMMARY | 2024-03-02 13:51 | XMS_ITS | Encounter Summary ---
Author Name Unknown Organization [facility] Address [address] [place] [address] Care Team Providers Care Life Science Technician Name Role Phone Tk Pisano M.D. Primary Care Provider [phone] [phone] Encounter Details Date Type Department Care Team (Late st Contact Info) Description 01/18/2024 Orders Only Division of Gastroenterology in [place], [place] [address] [place] [address] Kushal Conti M.D. [address] [place] [address] Genetic Susceptibility To Disease Social History Tobacco Use Types Packs/Day Years [...] often do you attend chur ch or amish services? 1 to 4 times per year 11/06/2022 Do you belong to any clubs o r organizations such as jain groups, unions, fraternal or athletic groups, or [...] Answer Date Recorded PHQ-2 Score 0 01/16/2022 [facility] of Occupat ional Health - Occupational [...] place to sleep or slept in a nursing home (including now)? No 11/06/2022 Nutrition Answer Date [...] Master's degree (e.g., MA, MS, Armando, MEd, MERCHANDISE EXECUTION LEADER, VLAD) 10/20/2022 Sex and Gender Information Value Date Recorded Sex Assigned at Female 06/07/2018 4:00 PM CDT Gender Identity Female 06/07/2018 4:00 PM CDT Sexual Orientation Straight 06/07/2018 4: 00 PM CDT documented as of this encounter Plan of Treatment Not on file documented as of this encounter Procedures Procedure Name Priority Date/Time Associated Diagnosis Comments EXT TAPESTRY Routine 08/21/2022 12:00 AM CDT Genetic Susceptibility To Disease documented in this encounter Results * EXT Tapestry (08/21/2022 12:00 AM CDT) Gene Studied BRCA1,BRCA2,MLH1,MSH 2, MSH6,PMS2,EPCAM,APOB,L DLR,LDLRAP1,PCSK9 10/09/2022 12:00 AM [facility] Genetic Disease Assessed Evaluation of 11 genes associated with Hereditary Breast and Ovarian Cancer, Dunn Syndrome and Familial Hypercholesterolemia. 10/09/2022 12:00 AM [facility] Genetic Analysis Overall Interpretation Negative results through Tapestry do not replace diagnostic testing for patients with a personal or family history of cancer/hypercholestero lemia due to limitations with methodology. Consider a referral to a genetic counselor for diagnostic testing if warranted. 10/09/2022 12:00 AM [facility] Genetic Analysis Report See Tapestry PDF Report No actionable gene changes were detected in the genes that cause Familial Hypercholesterolemia. The genes tested for this condition were APOB, LDLR, LDLRAP1, and PCSK9.No actionable gene changes were detected in the genes that cause Hereditary Breast and Ovarian Cancer. The genes tested for this condition were BRCA1 and BRCA2.No actionable gene changes were detected in the genes that cause Dunn Syndrome. The genes tested for this condition were MLH1, MSH2, MSH6, PMS2 and EPCAM. DNA extracted from this individual's sample was captured and enriched using a custom set of reagents (Odysii+ chemistry). Targeted regions were sequenced using an Illumina DNA sequencing system. Your sequence was matched to a modified version of the [place] standard reference genome (GRCh38). Variant calling was completed using a customized version of [employer]'s Zumboxq software, requiring 20x coverage for validated variant calls. Copy Number Variants (CNVs) were called using a proprietary bioinformatics pipeline that compared the coverage profile of your sample with the coverage profiles of other reference set samples. [facility] then analyzed the generated variant data for the exons and 10 bp of flanking intronic sequence (and select tagged intronic variants) of the 11 genes included in Yummy77 from the [employer] Database. Your sample was reviewed for single nucleotide variants (SNVs), indels up to 20 bp in length, and CNVs that are known or predicted to be actionable. NOTE: This assay has limited sensitivity to CNVs smaller than a few exons. APOB, PCSK9, and LDLR interpretation and reporting is specific to the Familial Hypercholesterolemia phenotype. Variants associated with other phenotypes such as Hypobetalipoproteinemi a are not included. Some known complex variants like the inversion of exons 1-7 in the MSH2 gene (Tonja inversion), exons 11-15 of the PMS2 gene, or variants within or immediately adjacent to long homopolymer runs are not analyzed or reported. There are regions that are not covered, such as deep intronic, promoter, and enhancer regions. This assay cannot detect all variants known to increase disease risk. Other clinical diagnostic testing for these conditions could identify variants not detected by this test. If you have had previous testing, these results should be taken into consideration during risk assessments and medical management. 10/09/2022 12:00 AM [facility] Human Reference Sequence Assembly GRCh38 10/09/2022 12:00 AM [facility] Saliva (Mouth) 08/21/2022 Kushal Conti M.D. LAB GENETI C TESTING HEL[facility] [address] [facility], [address] [place] [address], [facility] [address] [facility] [facility], [address] [place] [address] documented in this encounter Visit Diagnoses Diagnosis Genetic Susceptibility To Disease documented in this encounter Care Teams Life Science Technician Relationship Specialty Start Date End Date Tk Pisano M.D. [address] [place] [address] PCP - General 03/02/23 documented as of this encounter
--- NOTE | 2024-03-02 14:00 | US_ITS ---
Patient: DORCAS VARGAS Facility:?[facility] Patient ID:?[id number] Site Patient ID:?[id number]. Site :?1990 Study:?US-OB Pelvis OB F/U SUBOPTIMAL VIEWS-03/02/2024 2:42:00 PM Ordering Physician:DANIELA TOMAS Final Report: INDICATION: Follow-up anatomy COMPARISON: 02/02/2024 TECHNIQUE: Real time cobb scale imaging of the fetus was performed. FINDINGS: Sonographic imaging demonstrates a single living intrauterine gestation. Fetus demonstrates a regular cardiac rate of 141 beats per minute. Fetus has a vertex position. The placenta lies anteriorly. Amniotic fluid volume appears normal. Single deepest vertical pocket: 6.1 cm. Normal profile. There is a normal four-chamber heart view and the left and right ventricular outflow tracts appear normal. IMPRESSION: Normal heart and profile. Dictated by Alexander Baltazar MD @ 03/03/2024 10:17:28 AM Signed by:?Alexander Baltazar MD @03/03/2024 10:17:28 AM (Electronic Signature)
== END 2024-03-02 13:50 | disposition home or self-care (01) ==
LOC: US 13:49
PROVIDERS: PCP Nurse Practitioner Family; Visit Provider Physician Assistant
DX: Z34.90 Encounter for supervision of normal pregnancy, unspecified, unspecified trimester (principal)
CPT/HCPCS: 76816

== ENCOUNTER 2024-04-06 14:44 | Outpatient (CLI) | payer BC, SELFPAY ==
--- OUTSIDE RECORDS SUMMARY | 2024-04-22 08:29 | XMS_ITS | Encounter Summary ---
Author Organization [facility] Address [address] [place] [address] Care Team Providers Care Drive Worker Name Role Phone Tk Pisano M.D. Primary Care Provider [phone] [phone] Reason for Referral * Outpatient (Routine) - Authorized Specialty Diagnoses / Procedures Referred By Fred t Referred To Contact Family Medicine Tk Pisano M.D. [address] [place] [address] [facility] Referral ID Status Reason Start Date Expiration Date V isits Requested Visits Authorized [id number] Authorized 02/23/2024 08/24/2025 1 1 Encounter Details Date Type Department Care Team (Late st Contact Info) Description 02/23/2024 Orders Only [facility] PCP HLTH MNT Tk Pisano M.D. [address] [place] [address] Social History Tobacco Use Types [...] often do you attend chur ch or scientologist services? 1 to 4 times per year 11/06/2022 Do you belong to any clubs o r organizations such as faith groups, unions, fraternal or athletic groups, or [...] Answer Date Recorded PHQ-2 Score 0 01/16/2022 [facility] of Occupat ional Health - Occupational [...] place to sleep or slept in a longterm (including now)? No 11/06/2022 Nutrition Answer Date [...] Master's degree (e.g., MA, MS, Armando, MEd, LAYOUT DESIGNER, VLAD) 10/20/2022 Sex and Gender Information [...] on filedocumented in this encounter Care Teams Drive Worker Relationship Specialty Start Date End Date Tk Pisano M.D. [address] [place] [phone] PCP - General 03/02/23 documented as of this encounter
--- OUTSIDE RECORDS SUMMARY | 2024-04-22 08:29 | XMS_ITS | Referral Summary ---
Author Organization [facility] Address [address] [place] [address] Care Team Providers Care Parts Sales Representative Name Role Phone Tk Pisano M.D. Primary Care Provider [phone] [phone] Source Comments Patient records contain information from all sites at [facility]. For routine questions regarding patient records, call [phone] during business hours, M-F 8:00 AM - 5:00 PM Central Time. Record requests for emergency care only can be directed to [phone] at any time.[facility] Encounters Date Type Department Care Team Description 02/23/2024 Orders Only [facility] PCP TH MNT Tk Pisano M.D. from Last 3 Months Allergies Active Allergy Reactions Criticality Noted Date Comments Amoxicillin Hives (Reselect Reaction) Low 03/02/2011 Converted from Generic Allergy: Amoxicillin Peanut Hives (Reselect Reaction) Low 06/16/2017 throat becomes scratchy with eating peanut butter when living in [place] Penicillins Hives (Reselect Reaction) Low 03/02/2011 [...] B screening positive. Came to [facility] for more testing. Immunizations Name Administration Dates [...] How often do you attend chur or pentecostalism services? 1 to 4 times per year 11/06/2022 Do you belong to any clubs o r organizations such as anabaptist groups, unions, fraternal or athletic groups, or [...] Answer Date Recorded PHQ-2 Score 0 01/16/2022 [facility] of Occupat ional [facility] - Occupational Stress Questionnaire Answer Date Recorded [...] Master's degree (e.g., MA, MS, Armando, MEd, TROLLEY CLEANER, VLAD) 10/20/2022 Sex and Gender Information Value [...] CDT Oxygen Saturation 99% 01/16/2022 3:35 PM TECHNICIAN PREVENTATIVE MEDICINE Inhaled Oxygen Concentration - - Weight 85.1 [...] Ramos M.D. LAB MICROBIOLOGY - GENERAL ORDERABLES [facility] [address] [place] [address], [facility] ECLR [facility] [place] [address] * HIV-1/-2 Ag and Ab Screen, Plasma [...] P.A. LAB MICRO BIOLOGY - BLOOD ORDERABLES [facility] [address] [place] [address], [facility] ECLR [facility] [place] [address] * HCV Ab Scrn w/Reflex to HCV PCR, Serum (05/08/2020 2:07 PM CDT) HCV Ab Screen, S Negative Negative 05/09/20 2:20 AM CDT ECLR Comment: Biotin has been identified by the whiting can worker as a potential interfering substance. ??Higher concentrations of biotin may be found in multivitamins, hair/nail supplements, and workout supplements. ??If the result does not match clinical observations, repeat testing after patient refrains from the use of supplements for at least 12 hours. Blood (Blood, Venous) 05/08/2020 2:07 PM CDT 05/08/2020 9:42 PM CDT Narrative [facility] - 05/09/2020 2:20 AM CDT Specimen Information: Specimen ID: [id number] Specimen Type: Blood Specimen Collection Start Date: 05/08/2020 ??2:07 PM Specimen Received Date: 05/08/2020 ??9:42 PM Specimen ID: [id number] Specimen Type: Blood Specimen Collection Start Date: 05/08/2020 ??2:07 PM Specimen Received Date: 05/08/2020 ??9:42 PM Mary Beth Martinez P.A.-C.AKaren LAB MICRO BIOLOGY - BLOOD ORDERABLES [facility] [address] [place] [address], [place] ECLR [facility] [place] [address] [place] [address] from Last 3 Months or Most Recently Relevant to Health Maintenance Care Teams Parts Sales Representative Relationship Specialty Start Date End Date Tk Pisano M.D. [address] [place] [address] PCP - General 03/02/23
--- OUTSIDE RECORDS SUMMARY | 2024-04-22 08:29 | XMS_ITS ---
Author Organization [facility] Address [address] [place] [address] Care Team Providers Care Energy Trader Name Role Phone Unavailable Unavailable Unavailable Surgery Details Not on file Complications Check Surgery Details section. Procedure Estimated Blood Loss Check Surgery Details section. Procedure Findings Check Surgery Details section. Procedure Specimens Taken Check Surgery Details section.
--- OUTSIDE RECORDS SUMMARY | 2024-04-22 08:29 | XMS_ITS | Clinical Summary ---
Author Organization [facility] Address [address] [place] [address] Care Team Providers Care Education Liaison Name Role Phone Tk Pisano M.D. Primary Care Provider [phone] [phone] Source Comments Patient records contain information from all sites at [facility]. For routine questions regarding patient records, call [phone] during business hours, M-F 8:00 AM - 5:00 PM Central Time. Record requests for emergency care only can be directed to [phone] at any time.[facility] Allergies Active Allergy Reactions Criticality Noted Date [...] for hep B screening positive. Came to [facility] for more testing. Encounters Date Type Department [...] week 11/06/2022 How often do you attend [facility] or episcopalian services? 1 to 4 times per year 11/06/2022 Do you belong to any clubs o r organizations such as episcopal groups, unions, fraternal or athletic groups, or [...] Answer Date Recorded PHQ-2 Score 0 01/16/2022 [facility] of Occupat ional Health - [...] place to sleep or slept in a penitentiary (including now)? No 11/06/2022 Nutrition Answer Date [...] Master's degree (e.g., MA, MS, Armando, MEd, CHISEL MORTISER OPERATOR, VLAD) 10/20/2022 Sex and Gender Information Value [...] CDT Oxygen Saturation 99% 01/16/2022 3:35 PM AWAKE OVERNIGHT MONITOR Inhaled Oxygen Concentration - - Weight 85.1 [...] Ramos M.D. LAB MICROBIOLOGY - GENERAL ORDERABLES [facility] [address] [place] [address], [facility] ECLR [place] [address] * HIV-1/-2 Ag and Ab Screen, Plasma (05/08/2020 2:07 PM CDT) Pathologist [facility] HIV Ag/Ab Screen, P Negative Negative 05/09/2020 [...] P.A. LAB MICRO BIOLOGY - BLOOD ORDERABLES [facility] [address] [place] [address], [facility] ECLR [facility] [place] [address] * HCV Ab Scrn w/Reflex to HCV PCR, Serum (05/08/2020 2:07 PM CDT) HCV Ab Screen, S Negative Negative 05/09/20 20 2:20 AM CDT ECLR Comment: Biotin has been identified by the ore bridge operator as a potential interfering substance. ??Higher concentrations of biotin may be found in multivitamins, hair/nail supplements, and workout supplements. ??If the result does not match clinical observations, repeat testing after patient refrains from the use of supplements for at least 12 hours. Blood (Blood, Venous) 05/08/2020 2:07 PM CDT 05/08/2020 9:42 PM CDT Narrative [facility] - 05/09/2020 2:20 AM CDT Specimen Information: Specimen ID: [id number] Specimen Type: Blood Specimen Collection Start Date: 05/08/2020 ??2:07 PM Specimen Received Date: 05/08/2020 ??9:42 PM Specimen ID: [id number] Specimen Type: Blood Specimen Collection Start Date: 05/08/2020 ??2:07 PM Specimen Received Date: 05/08/2020 ??9:42 PM Marcia Vance P.A.-C., P.A. LAB MICRO BIOLOGY - BLOOD ORDERABLES [facility] [address] [place] [address], [place] ECLR [facility] [place] [address] [place] [address] from Last 3 Months or Most Recently Relevant to Health Maintenance Care Teams Education Liaison Relationship Specialty Start Date End Date Tk Pisano M.D. [address] [place] [phone] PCP - General 03/02/23
--- OUTSIDE RECORDS SUMMARY | 2024-04-22 08:30 | XMS_ITS | Encounter Summary ---
Author Organization [facility] Address [address] [place] [address] Care Team Providers Care Section Laborer Name Role Phone Tk Pisano M.D. Primary Care Provider [phone] [phone] Encounter Details Date Type Department Care Team (Late st Contact Info) Description 01/18/2024 Orders Only Division of Gastroenterology in [place], [place] [address] [place] [address] Kushal Conti M.D. [address] [place] [address] Genetic Susceptibility To Disease Social History Tobacco [...] often do you attend chur ch or taoist services? 1 to 4 times per year 11/06/2022 Do you belong to any clubs o r organizations such as taoist groups, unions, fraternal or athletic groups, or [...] Answer Date Recorded PHQ-2 Score 0 01/16/2022 [facility] of Occupat ional Health - Occupational [...] Master's degree (e.g., MA, MS, Armando, MEd, HR ASSOCIATE, VLAD) 10/20/2022 Sex and Gender Information [...] BRCA1,BRCA2,MLH1,MSH 2, MSH6,PMS2,EPCAM,APOB,L DLR,LDLRAP1,PCSK9 10/09/2022 12:00 AM REVENUE CYCLE CONSULTANT CHAN Genetic Disease Assessed Evaluation of 11 genes associated with Hereditary Breast and Ovarian Cancer, Dunn Syndrome and Familial Hypercholesterolemia. 10/09/2022 12:[address] [facility] Genetic Analysis Overall Interpretation Negative results through Tapestry do not replace diagnostic testing for patients with a personal or family history of cancer/hypercholestero lemia due to limitations with methodology. Consider a referral to a genetic counselor for diagnostic testing if warranted. 10/09/2022 12:[address] [facility] Genetic Analysis Report See Tapestry PDF Report [...] enriched using a custom set of reagents (Tunesat+ chemistry). Targeted regions were sequenced using an Illumina DNA sequencing system. Your sequence was matched to a modified version of the buffalo standard reference genome (GRCh38). Variant calling was completed using a customized version of [employer]'s SpeakWorksq software, requiring 20x coverage for validated variant calls. Copy Number Variants (CNVs) were called using a proprietary bioinformatics pipeline that compared the coverage profile of your sample with the coverage profiles of other reference set samples. [facility] [employer] Nation then analyzed the generated variant data for the exons and 10 bp of flanking intronic sequence (and select tagged intronic variants) of the 11 genes included in [place] from the Noxilizer Database. Your sample was reviewed for single [...] assessments and medical management. 10/09/2022 12:00 AM REVENUE CYCLE CONSULTANT CHAN Human Reference Sequence Assembly [id number] 10/09/2022 12:00 AM REVENUE CYCLE CONSULTANT CHAN Saliva (Mouth) 08/21/2022 Kushal Conti M.D. LAB GENETI C TESTING [place] [address] [facility], [address] [place] [address], [facility] CHAN [place] [address] [facility], [address] [place] [address] documented in this encounter Visit Diagnoses Diagnosis Genetic Susceptibility To Disease documented in this encounter Care Teams Section Laborer Relationship Specialty Start Date End Date Tk Pisano M.D. [address] [place] [address] PCP - General 03/02/23 documented as of this encounter
== END 2024-04-06 14:45 | disposition home or self-care (01) ==
LOC: NFLDREF 04-22 08:27
PROVIDERS: PCP Nurse Practitioner Family; Referring Provider Nurse Practitioner Family; Visit Provider Obstetrics & Gynecology
DX: Z34.93 Encounter for supervision of normal pregnancy, unspecified, third trimester (principal)
CPT/HCPCS: 86592

== ENCOUNTER 2024-04-19 18:39 | Outpatient (CLI) | payer BC, SELFPAY ==
--- OUTSIDE RECORDS SUMMARY | 2024-04-19 18:42 | XMS_ITS | Clinical Summary ---
Author Organization [facility] Address [address] [place] [address] Care Team Providers Care Leave Manager Name Role Phone Tk Pisano M.D. Primary Care Provider +1 -[phone] Source Comments Patient records contain information from all sites at [facility]. For routine questions regarding patient records, call [phone] during business hours, M-F 8:00 AM - 5:00 PM Central Time. Record requests for emergency care only can be directed to [phone] at any time.[facility] Allergies Active Allergy Reactions Criticality Noted Date [...] for hep B screening positive. Came to [facility] for more testing. Encounters Date Type Department Care Team Description 02/23/2024 Orders Only [facility] PCP HLTH MNT Tk Pisano M.D. from Last 3 Months Immunizations Name Administration [...] Hypertension Father Robbin Zaidi Obesity Father Robbin [place] Arthritis Maternal Grandfather Nolan Santosloch Parkinsonism Maternal Grandfather Nolan Santoslonidhi Rheum arthritis Maternal Grandmother Yaakov Garciach Alcohol abuse Mother Joanne Zaidi Anxiety disorder Mother Joanne Zaidi Depression Mother Joanne Zaidi Coronary artery disease Paternal Grandfather Michael La t[place] Diabetes Paternal Grandfather Michael [place] Seizures Paternal Grandfather Michael [place] Breast cancer Paternal Grandmother Charleen Zaidi 65 Coronary artery disease Paternal Grandmother Charleen [place] Migraines Paternal Grandmother Charleen [place] Relation Name Status Comments Father Robbin Zaidi Maternal Grandfather Nolan [place] Maternal Grandmother Yaakov Garciach Mother Joanne [place] Paternal Grandfather Michael [place] Paternal Grandmother Charleen Zaidi Social History Tobacco [...] week 11/06/2022 How often do you attend [facility] or islam services? 1 to 4 times per year 11/06/2022 Do you belong to any clubs o r organizations such as mormon groups, unions, fraternal or athletic groups, or [...] Answer Date Recorded PHQ-2 Score 0 01/16/2022 [facility] Occupat ional Health - Occupational [...] place to sleep or slept in a skilled nursing (including now)? No 11/06/2022 Nutrition Answer Date [...] Master's degree (e.g., MA, MS, Armando, MEd, FABRICATION LEAD, VLAD) 10/20/2022 Sex and Gender Information Value [...] CDT Oxygen Saturation 99% 01/16/2022 3:35 PM PIPELINE INTEGRITY ENGINEER Inhaled Oxygen Concentration - - Weight 85.1 [...] on patient's age to complete this topic Procedures Procedure Name Priority Date/Time Associated Diagnosis Comments HPV WITH GENOTYPING, PCR, THINPREP Routine 06/19/2022 10:15 AM CDT HCV AB SCRN W/REFLEX TO HCV PCR, S Routine 05/08/2020 2:07 PM CDT Screening For Venereal Disease HIV-1/-2 AG AND AB SCREEN, PLASMA Routine 05/08/2020 2:07 PM CDT Screening For Venereal Disease from Last 3 Months or Most Recently Relevant to Health Maintenance Results * HPV with Genotyping, PCR, ThinPrep (06/19/2022 10:15 AM CDT) HPV with Genotyping, ThinPrep, PCR Negative Negative 06/20/2022 4:28 PM CDT ECLR Comment: Negative for high risk HPV by nucleic acid amplification. ??The following high risk HPV types were not detected: 16, 18, 31, 33, 35, 39, 45, 51, 52, 56, 58, 59, 66, and 68 Varies 06/19/2022 10:1 5 AM CDT 06/20/2022 11:48 AM CDT Michelle Ramos M.D. LAB MICROBIOLOGY - GENERAL ORDERABLES [facility] [address] [place] [address], [facility] ECLR [facility] [place] [address] * HIV-1/-2 Ag and Ab Screen, Plasma (05/08/2020 2:07 PM CDT) Pathologist [facility] HIV Ag/Ab Screen, P Negative Negative 05/09/2020 10:14 AM CDT ECLR Comment: Negative result does not rule out HIV infection. If exposure to HIV infection occurred <14 days ago, contact the laboratory to request addition of HIV-1 RNA detection / quantification test. HIV-1 p24 Ag Screen, P Negative Negative 05/09/2020 10:14 AM CDT ECLR Comment: Negative result does not rule out HIV infection. If exposure to HIV infection occurred <14 days ago, contact the laboratory to request addition of HIV-1 RNA detection / quantification test. HIV-1 Ab Screen, P Negative Negative 2019 10:14 AM CDT ECLR Comment: Negative result does not rule out HIV infection. If exposure to HIV infection occurred <14 days ago, contact the laboratory to request addition of HIV-1 RNA detection / quantification test. HIV-2 Ab Screen, P Negative Negative 2019 10:14 AM CDT ECLR Comment: Negative result does not rule out HIV infection. If exposure to HIV infection occurred <14 days ago, contact the laboratory to request addition of HIV-1 RNA detection / quantification test. Blood (Blood, Venous) 05/08/2020 2:07 PM CDT 05/08/2020 9:42 PM CDT Marcia Vance P.A.-C., P.A. LAB MICRO BIOLOGY - BLOOD ORDERABLES [facility] [address] [place] [address], [facility] ECLR [facility] [place] [address] * HCV Ab Scrn w/Reflex to HCV PCR, Serum (05/08/2020 2:07 PM CDT) HCV Ab Screen, S Negative Negative 05/09/20 20 2:20 AM CDT ECLR Comment: Biotin has been identified by the web designer developer as a potential interfering substance. ??Higher concentrations of biotin may be found in multivitamins, hair/nail supplements, and workout supplements. ??If the result does not match clinical observations, repeat testing after patient refrains from the use of supplements for at least 12 hours. Blood (Blood, Venous) 05/08/2020 2:07 PM CDT 05/08/2020 9:42 PM CDT Narrative [facility] - 05/09/2020 2:20 AM CDT Specimen Information: Specimen ID: [id number] Specimen Type: Blood Specimen Collection Start Date: 05/08/2020 ??2:07 PM Specimen Received Date: 05/08/2020 ??9:42 PM Specimen ID: [id number] Specimen Type: Blood Specimen Collection Start Date: 05/08/2020 ??2:07 PM Specimen Received Date: 05/08/2020 ??9:42 PM Marcia Vance P.A.-C., P.A. LAB MICRO BIOLOGY - BLOOD ORDERABLES [facility] [address] [place] [address], [place] ECLR [facility] [place] [address] [place] [address] from Last 3 Months or Most Recently Relevant to Health Maintenance Care Teams Leave Manager Relationship Specialty Start Date End Date Tk Pisano M.D. [address] [place] [phone] PCP - General 03/02/23
--- OUTSIDE RECORDS SUMMARY | 2024-04-19 18:42 | XMS_ITS | Encounter Summary ---
Author Organization [facility] Address [address] [place] [address] Care Team Providers Care Family Engagement Specialist Name Role Phone Tk Pisano M.D. Primary Care Provider [phone] [phone] Reason for Referral * Outpatient (Routine) - Authorized Specialty Diagnoses / Procedures Referred By Fred t Referred To Contact Family Medicine Tk Pisano M.D. [address] [place] [address] [facility] Referral ID Status Reason Start Date Expiration Date V isits Requested Visits Authorized [id number] Authorized 02/23/2024 08/24/2025 1 1 Encounter Details Date Type Department Care Team (Late st Contact Info) Description 02/23/2024 Orders Only [facility] PCP HLTH MNT Tk Pisano M.D. [address] [place] [address] Social History Tobacco Use Types [...] often do you attend chur ch or yazidism services? 1 to 4 times per year 11/06/2022 Do you belong to any clubs o r organizations such as restoration groups, unions, fraternal or athletic groups, or [...] Answer Date Recorded PHQ-2 Score 0 01/16/2022 [facility] Occupat ional Health - [...] place to sleep or slept in a senior living (including now)? No 11/06/2022 Nutrition Answer Date [...] Master's degree (e.g., MA, MS, Armando, MEd, POSTMASTER, VLAD) 10/20/2022 Sex and Gender Information Value [...] on filedocumented in this encounter Care Teams Family Engagement Specialist Relationship Specialty Start Date End Date Tk Pisano M.D. [address] [place] [phone] PCP - General 03/02/23 documented as of this encounter
--- OUTSIDE RECORDS SUMMARY | 2024-04-19 18:42 | XMS_ITS ---
Author Organization [facility] Address [address] [place] [address] Care Team Providers Care Stock Shipper Name Role Phone Unavailable Unavailable Unavailable Surgery Details Not on file Complications Check Surgery Details section. Procedure Estimated Blood Loss Check Surgery Details section. Procedure Findings Check Surgery Details section. Procedure Specimens Taken Check Surgery Details section.
--- OUTSIDE RECORDS SUMMARY | 2024-04-19 18:42 | XMS_ITS | Encounter Summary ---
Author Organization [facility] Address [address] [place] [address] Care Team Providers Care Flatbed Driver Name Role Phone Tk Pisano M.D. Primary Care Provider +1 [phone] Encounter Details Date Type Department Care Team (Late st Contact Info) Description 01/18/2024 Orders Only Division of Gastroenterology in [place], [place] [address] [place] [address] Kushal Conti M.D. [address] [place] [address] Genetic Susceptibility To Disease Social History Tobacco [...] often do you attend chur ch or druze services? 1 to 4 times per year 11/06/2022 Do you belong to any clubs o r organizations such as sikh groups, unions, fraternal or athletic groups, or [...] Answer Date Recorded PHQ-2 Score 0 01/16/2022 [facility] of Occupat ional Health - Occupational Stress [...] place to sleep or slept in a snf (including now)? No 11/06/2022 Nutrition Answer Date [...] Master's degree (e.g., MA, MS, Armando, MEd, PATIENT SERVICE ASSOCIATE, VLAD) 10/20/2022 Sex and Gender Information [...] BRCA1,BRCA2,MLH1,MSH 2, MSH6,PMS2,EPCAM,APOB,L DLR,LDLRAP1,PCSK9 10/09/2022 12:00 AM PARTNER MANAGEMENT CONSULTANT CHAN Genetic Disease Assessed Evaluation of 11 genes associated with Hereditary Breast and Ovarian Cancer, Dunn Syndrome and Familial Hypercholesterolemia. 10/09/2022 12:00 AM [facility] Genetic Analysis Overall Interpretation Negative results through Tapestry do not replace diagnostic testing for patients with a personal or family history of cancer/hypercholestero lemia due to limitations with methodology. Consider a referral to a genetic counselor for diagnostic testing if warranted. 10/09/2022 12:00 AM [facility] Genetic Analysis Report See Tapestry PDF Report [...] enriched using a custom set of reagents (Postabon+ chemistry). Targeted regions were sequenced using an Illumina DNA sequencing system. Your sequence was matched to a modified version of the [place] standard reference genome (GRCh38). Variant calling was completed using a customized version of [employer]'s Local Offer Networkq software, requiring 20x coverage for validated variant calls. Copy Number Variants (CNVs) were called using a proprietary bioinformatics pipeline that compared the coverage profile of your sample with the coverage profiles of other reference set samples. [facility] [id number] Media then analyzed the generated variant data for the exons and 10 bp of flanking intronic sequence (and select tagged intronic variants) of the 11 genes included in Octoshape from the Data [employer] Database. Your sample was reviewed for single [...] assessments and medical management. 10/09/2022 12:00 AM PARTNER MANAGEMENT CONSULTANT CHAN Human Reference Sequence Assembly GRCh38 10/09/2022 12:00 AM PARTNER MANAGEMENT CONSULTANT CHAN Saliva (Mouth) 08/21/2022 Kushal Conti M.D. LAB GENETI C TESTING [place] [address] [facility], [address] [place] [address], [facility] CHAN [place] [address] [facility], [address] [place] [address] documented in this encounter Visit Diagnoses Diagnosis Genetic Susceptibility To Disease documented in this encounter Care Teams Flatbed Driver Relationship Specialty Start Date End Date Tk Pisano M.D. [address] [place] [address] PCP - General 03/02/23 documented as of this encounter
--- OUTSIDE RECORDS SUMMARY | 2024-04-19 18:42 | XMS_ITS | Referral Summary ---
Author Organization [facility] Address [address] [place] [address] Care Team Providers Care Recoil Spring Winder Name Role Phone Tk Pisano M.D. Primary Care Provider [phone] [phone] Source Comments Patient records contain information from all sites at [facility]. For routine questions regarding patient records, call [phone] during business hours, M-F 8:00 AM - 5:00 PM Central Time. Record requests for emergency care only can be directed to [phone] at any time.[facility] Encounters Date Type Department Care Team Description 02/23/2024 Orders Only [facility] PCP TH MNT Tk Pisano M.D. from Last 3 Months Allergies Active Allergy Reactions Criticality Noted Date Comments Amoxicillin Hives (Reselect Reaction) Low 03/02/2011 Converted from Generic Allergy: Amoxicillin Peanut Hives (Reselect Reaction) Low 06/16/2017 throat becomes scratchy with eating peanut butter when living in [place] Penicillins Hives (Reselect Reaction) Low 03/02/2011 [...] for hep B screening positive. Came to [facility] for more testing. Immunizations Name Administration Dates [...] How often do you attend chur or moravian services? 1 to 4 times per year 11/06/2022 Do you belong to any clubs o r organizations such as taoism groups, unions, fraternal or athletic groups, or [...] Answer Date Recorded PHQ-2 Score 0 01/16/2022 [facility] Occupat ional [facility] - Occupational Stress Questionnaire Answer Date Recorded [...] place to sleep or slept in a retirement (including now)? No 11/06/2022 Nutrition Answer Date [...] Master's degree (e.g., MA, MS, Armando, MEd, STAGE SET DESIGNER, VLAD) 10/20/2022 Sex and Gender Information Value [...] CDT Oxygen Saturation 99% 01/16/2022 3:35 PM ROCK SINGER Inhaled Oxygen Concentration - - Weight 85.1 kg (187 lb 9.8 oz) 09/23/2022 7:54 A M CDT Height 178.1 cm (5' 10.12) 09/23/2022 7:54 AM C DT Body Mass Index 26.83 09/23/2022 7:54 AM CDT Plan of Treatment Not on file Procedures Procedure Name Priority Date/Time Associated Diagnosis [...] Ramos M.D. LAB MICROBIOLOGY - GENERAL ORDERABLES [facility] [address] [place] [address], [facility] ECLR [facility] [place] [address] * HIV-1/-2 Ag and Ab Screen, Plasma (05/08/2020 2:07 PM CDT) HIV Ag/Ab Screen, P Negative Negative 05/09/2020 [...] P.A. LAB MICRO BIOLOGY - BLOOD ORDERABLES [facility] [address] [place] [address], [facility] ECLR [facility] [place] [address] * HCV Ab Scrn w/Reflex to HCV PCR, Serum (05/08/2020 2:07 PM CDT) HCV Ab Screen, S Negative Negative 05/09/20 2:20 AM CDT ECLR Comment: Biotin has been identified by the quality liaison as a potential interfering substance. ??Higher concentrations of biotin may be found in multivitamins, hair/nail supplements, and workout supplements. ??If the result does not match clinical observations, repeat testing after patient refrains from the use of supplements for at least 12 hours. Blood (Blood, Venous) 05/08/2020 2:07 PM CDT 05/08/2020 9:42 PM CDT Narrative [facility] - 05/09/2020 2:20 AM CDT Specimen Information: Specimen ID: [id number] Specimen Type: Blood Specimen Collection Start Date: 05/08/2020 ??2:07 PM Specimen Received Date: 05/08/2020 ??9:42 PM Specimen ID: [id number] Specimen Type: Blood Specimen Collection Start Date: 05/08/2020 ??2:07 PM Specimen Received Date: 05/08/2020 ??9:42 PM Mary Beth Martinez P.A.-C.AKaren LAB MICRO BIOLOGY - BLOOD ORDERABLES [facility] [address] [place] [address], [place] [address]CL[address] [facility] [place] [address] [place] [address] from Last 3 Months or Most Recently Relevant to Health Maintenance Care Teams Recoil Spring Winder Relationship Specialty Start Date End Date Tk Pisano M.D. [address] [place] [address] PCP - General 03/02/23
[2024-04-23 13:15] LABS: Creatinine Urine 57.9 mg/dL; Total Protein Urine 10 mg/dL
[2024-04-23 14:19] LABS: Collection Time Urine 24 Hours; Total Protein 24 Hour Urine 287.5 mg/Day; Total Volume 24 Hour Urine 2875 ml; Urine Creatinine mg/24 Hour 0 mg/Day
== END 2024-04-19 18:40 | disposition home or self-care (01) ==
PROVIDERS: PCP Nurse Practitioner Family; Visit Provider Registered Nurse
DX: R03.0 Elevated blood-pressure reading, without diagnosis of hypertension (principal)
CPT/HCPCS: 82565; 82570; 84156; 84450; 84460; 84520

== ENCOUNTER 2024-06-01 13:27 | Outpatient (CLI) | payer BC, SELFPAY ==
--- OUTSIDE RECORDS SUMMARY | 2024-06-01 13:30 | XMS_ITS | Encounter Summary ---
Author Organization [facility] Address [address] [place] [address] Care Team Providers Care Sustainability Project Manager Name Role Phone Tk Pisano M.D. Primary Care Provider [phone] [phone] Reason for Referral * Outpatient (Routine) - Authorized Specialty Diagnoses / Procedures Referred By Fred t Referred To Contact Family Medicine Tk Pisano M.D. [address] [place] [address] [facility] Referral ID Status Reason Start Date Expiration Date V isits Requested Visits Authorized [id number] Authorized 02/23/2024 08/24/2025 1 1 Encounter Details Date Type Department Care Team (Late st Contact Info) Description 02/23/2024 Orders Only [facility] Tk Pisano M.D. [address] [place] [address] Social History Tobacco Use Types [...] often do you attend chur ch or sikh services? 1 to 4 times per year 11/06/2022 Do you belong to any clubs o r organizations such as jewish groups, unions, fraternal or athletic groups, or [...] Answer Date Recorded PHQ-2 Score 0 01/16/2022 [facility] of Occupat ional Health - Occupational Stress [...] place to sleep or slept in a half-way (including now)? No 11/06/2022 Nutrition Answer Date [...] Master's degree (e.g., MA, MS, Armando, MEd, HAIR BOILER, VLAD) 10/20/2022 Sex and Gender Information Value [...] on filedocumented in this encounter Care Teams Sustainability Project Manager Relationship Specialty Start Date End Date Tk Pisano M.D. [address] [place] [phone] PCP - General 03/02/23 documented as of this encounter
--- OUTSIDE RECORDS SUMMARY | 2024-06-01 13:30 | XMS_ITS | Referral Summary ---
Author Organization [facility] Address [address] [place] [address] Care Team Providers Care Gaming Commissioner Name Role Phone Tk Pisano M.D. Primary Care Provider [phone] [phone] Source Comments Patient records contain information from all sites at [facility]. For routine questions regarding patient records, call [phone] during business hours, M-F 8:00 AM - 5:00 PM Central Time. Record requests for emergency care only can be directed to [phone] at any time.[facility] Allergies Active Allergy Reactions Criticality Noted [...] [facility]. Immunizations Name Administration Dates [...] often do you attend chur ch or zoroastrianism services? 1 to 4 times per year [...] Answer Date Recorded PHQ-2 Score 0 01/16/2022 [facility] of Occupat ional Health - Occupational Stress [...] place to sleep or slept in a intermediate (including now)? No 11/06/2022 Nutrition Answer Date [...] Master's degree (e.g., MA, MS, Armando, MEd, PARAFFINER, VLAD) 10/20/2022 Sex and Gender Information Value [...] CDT Oxygen Saturation 99% 01/16/2022 3:35 PM CLAY GRINDER Inhaled Oxygen Concentration - - Weight 85.1 [...] Ramos M.D. LAB MICROBIOLOGY - GENERAL ORDERABLES [facility] [address] [place] [address], [facility] ECLR [facility] [place] [address] * HIV-1/-2 Ag and Ab Screen, Plasma [...] P.A. LAB MICRO BIOLOGY - BLOOD ORDERABLES [facility] N[facility] [address] [place] [address], [facility] ECLR [facility] [place] [address] * HCV Ab Scrn w/Reflex to HCV PCR, Serum (05/08/2020 2:07 PM CDT) HCV Ab Screen, S Negative Negative 05/09/20 2:20 AM CDT ECLR Comment: Biotin has been identified by the truck sales manager as a potential interfering substance. ??Higher concentrations of biotin may be found in multivitamins, hair/nail supplements, and workout supplements. ??If the result does not match clinical observations, repeat testing after patient refrains from the use of supplements for at least 12 hours. Blood (Blood, Venous) 05/08/2020 2:07 PM CDT 05/08/2020 9:42 PM CDT Narrative [facility] - 05/09/2020 2:20 AM CDT Specimen Information: Specimen ID: [id number] Specimen Type: Blood Specimen Collection Start Date: 05/08/2020 ??2:07 PM Specimen Received Date: 05/08/2020 ??9:42 PM Specimen ID: [id number] Specimen Type: Blood Specimen Collection Start Date: 05/08/2020 ??2:07 PM Specimen Received Date: 05/08/2020 ??9:42 PM Marcia Vance P.A.-C., P.A. LAB MICRO BIOLOGY - BLOOD ORDERABLES [facility] [address] [place] [address], [place] ECLR [facility] [place] [address] [place] [address] from Last 3 Months or Most Recently Relevant to Health Maintenance Care Teams Gaming Commissioner Relationship Specialty Start Date End Date Tk Pisano M.D. [address] [place] [phone] PCP - General 03/02/23
--- OUTSIDE RECORDS SUMMARY | 2024-06-01 13:30 | XMS_ITS ---
Author Organization [facility] Address [address] [place] [address] Care Team Providers Care Phone Screener Name Role Phone Unavailable Unavailable Unavailable Surgery Details Not on file Complications Check Surgery Details section. Procedure Estimated Blood Loss Check Surgery Details section. Procedure Findings Check Surgery Details section. Procedure Specimens Taken Check Surgery Details section.
--- OUTSIDE RECORDS SUMMARY | 2024-06-01 13:30 | XMS_ITS | Clinical Summary ---
Author Organization [facility] Address [address] [place] [address] Care Team Providers Care Periodontist Name Role Phone Tk Pisano M.D. Primary Care Provider [phone] [phone] Source Comments Patient records contain information from all sites at [facility]. For routine questions regarding patient records, call [phone] during business hours, M-F 8:00 AM - 5:00 PM Central Time. Record requests for emergency care only can be directed to [phone] at any time.[facility] Allergies Active Allergy Reactions Criticality Noted Date [...] for hep B screening positive. Came [place] [facility] [place] more [place]. Immunizations Name Administration Dates [...] Nolan Cleveland Rheum arthritis Maternal Grandmother Yaakov Garciach Alcohol abuse Mother Joanne Zaidi Anxiety disorder Mother Joanne Zaidi Depression Mother Joanne Zaidi Coronary artery disease Paternal Grandfather Michael La tusek Diabetes Paternal Grandfather Michael [place] Seizures Paternal Grandfather Michael Zaidi Breast cancer Paternal Grandmother Charleen Zaidi 65 Coronary artery disease Paternal Grandmother Charleen [place] Migraines Paternal Grandmother Charleen Zaidi Relation Name Status Comments Father Robbin Zaidi Maternal Grandfather Nolan Santosloch Maternal Grandmother Yaakov Garciach Mother Joanne Zaidi Paternal Grandfather Michael Zaidi [...] often do you attend chur ch or mormonism services? 1 to 4 times per year 11/06/2022 Do you belong to any clubs o r organizations such as confucianist groups, unions, fraternal or athletic groups, or [...] PHQ-2 Score 0 01/16/2022 [facility] - Occupational Stress Questionnaire Answer Date [...] Master's degree (e.g., MA, MS, Armando, MEd, BODY AND FENDER MECHANIC APPRENTICE, VLAD) 10/20/2022 Sex and Gender Information Value [...] CDT Oxygen Saturation 99% 01/16/2022 3:35 PM PRESIDENT Inhaled Oxygen Concentration - - Weight 85.1 [...] 2023 09/24/2022, 10/21/2021, 02/14/2021, Additional history exists Depression Screening (Annual PHQ-2) 11/23/2023 Influenza Vaccine (#1) 2024 , 09/23/2021, 09/10/2020, Additional history exists DTaP,Tdap,and Td Vaccines (8 - Td or [...] Ramos M.D. LAB MICROBIOLOGY - GENERAL ORDERABLES [facility] [address] [place] [address], [facility] ECLR [facility] [address] * HIV-1/-2 Ag and Ab Screen, Plasma [...] P.A. LAB MICRO BIOLOGY - BLOOD ORDERABLES Performing Organization Address [facility] Co de Phone Number [facility] [address] [place] [address], [facility] ECLR [facility] [address] * HCV Ab Scrn w/Reflex to HCV PCR, Serum (05/08/2020 2:07 PM CDT) HCV Ab Screen, S Negative Negative 05/09/20 2:20 AM CDT ECLR Comment: Biotin has been identified by the astronomy teacher as a potential interfering substance. ??Higher concentrations of biotin may be found in multivitamins, hair/nail supplements, and workout supplements. ??If the result does not match clinical observations, repeat testing after patient refrains from the use of supplements for at least 12 hours. Blood (Blood, Venous) 05/08/2020 2:07 PM CDT 05/08/2020 9:42 PM CDT Narrative [facility] - 05/09/2020 2:20 AM CDT Specimen Information: Specimen ID: [id number] Specimen Type: Blood Specimen Collection Start Date: 05/08/2020 ??2:07 PM Specimen Received Date: 05/08/2020 ??9:42 PM Specimen ID: [id number] Specimen Type: Blood Specimen Collection Start Date: 05/08/2020 ??2:07 PM Specimen Received Date: 05/08/2020 ??9:42 PM Marcia Vance P.A.-C., P.A. LAB MICRO BIOLOGY - BLOOD ORDERABLES Performing Organization Address City/[facility]/ZIP Co de Phone Number [facility] [address] [facility] [place] [address], [place] ECLR [facility] [place] [address] [place] [address] from Last 3 Months or Most Recently Relevant to Health Maintenance Care Teams Periodontist Relationship Specialty Start Date End Date Tk Pisano M.D. [address] [place] [phone] PCP - General 03/02/23
[2024-06-02 13:41] LABS: Strep B DNA Probe Negative (Negative)
[2024-06-02 13:59] LABS: Strep B Susceptibility Needed? No
== END 2024-06-01 13:28 | disposition home or self-care (01) ==
LOC: NFLDREF 13:27
PROVIDERS: PCP Nurse Practitioner Family; Visit Provider Obstetrics & Gynecology
DX: Z34.93 Encounter for supervision of normal pregnancy, unspecified, third trimester (principal); Z3A.36 36 weeks gestation of pregnancy
CPT/HCPCS: 87081; 87653

== ENCOUNTER 2024-06-28 15:50 | Inpatient (IN) | payer BC, SELFPAY ==
[2024-06-28] VITALS (8 sets, daily range): BP systolic 122–140; BP diastolic 66–80; PULSE 57–66; RESP 16; TEMP 36.7–36.9; O2SAT 99–100
--- NOTE | 2024-06-28 14:36 | US_ITS ---
Patient: DORCAS VARGAS Facility:?[facility] Patient ID:?[id number] Site Patient ID:?[id number]. Site :?1990 Study:?US-OB Pelvis OB BPP-06/28/2024 3:37:28 PM Ordering Physician:?Felicia Ge Final Report: Indication: random variable decelerations noted VU: 06/28/2024 Technique: Real-time sonographic images of the pelvis were obtained transabdominally using grayscale, color, and Doppler imaging. Comparison: 03/02/2024 Findings: A single intrauterine is present in cephalic position. Cardiac activity in the fetus is demonstrated at 134 BPM. Placenta: Anterior. No previa or abruption. Amniotic Fluid: ANDREA 5.9 cm, single deepest pocket measures 1.5 centimeter initially, then 3.2 cm likely due to movement. Biophysical profile: Breathin/2 Movement: 2/2 Tone: 2/2 Fluid volume: 0/2 Total: 04/30 Impression: 1. Single living intrauterine gestation in cephalic presentation, with heartrate 134 BPM. 2. Anterior placenta without previa or abruption. 3. ANDREA 5.9 cm, deepest vertical pocket measures 3.2 centimeter, which is on the lower limit of normal. 4. BPP 06/30. Findings discussed with Marsha bazan RN at 4 p.m. on 06/28/2024. Dictated by Cristhian Mike MD @ 06/28/2024 3:59:38 PM ----- ADDENDUM ----- Findings should read: Biophysical profile: Breathin/2 Movement: 2/2 Tone: 2/2 Fluid volume: 2/2 Total: 06/30 Dictated by Cristhian Mike MD @ Jun 28 2024 4:00PM Signed by:?Cristhian Mike MD @06/28/2024 3:59:38 PM (Electronic Signature)
--- NOTE | 2024-06-28 16:18 | P.LDBA_ITS ---
Subjective History of Present Illness Date Seen: 06/28/24 Narrative: Leila is being admitted to Labor and Delivery for induction of labor. She is a 34 year old at 40.0 weeks gestation. Her full history and physical was dictated by Carie Emmanuel CNM on 06/08/24. Please see this for details. She was seen in the clinic today and there were concerns with FHR reactivity, sent over to triage for further monitoring. A BPP was ordered which was 8/8 with ANDREA of 5.9 and SDP of 1.5. This meets the criteria for oligohydramnios. Recommendation is induction, this was discussed with her and she consents to an induction of labor. She is desiring an unmedicated but states with an ind uctions she is open to an epidural if needed. Specific Issues/Plans G 1 P 0 H&P completed 06/08/2024 by Vernon GONZALEZ 1. Bleeding in early . Ultrasound on 12/04/2023 shows subchorionic hemorrhage right of the gestational sac measuring 2.9 x 1.3 x 1.4 cm. 2. Tiny polyp on face of cervix. No treatment needed at this time. Will monitor. 3. History of HTN noted in chart. Per patient report: HTN only briefly while in high school; attributed to anxiety. Was monitored briefly. Never required medication. Hasn't had any issues with HTN for >10+ years. PreE labs NOT performed. * Elevated blood pressure readings at 30 weeks. 154/70 and 144/70. Patient just received news that her cousin's baby is not going to make it. She delivered at 25 weeks gestation. Pre E labs performed. Advised patient to monitor blood pressures once daily over the next week and notify me of readings. If elevated, will consider starting her on an antihypertensive medication. * Normal BUN, creatinine, AST, ALT white blood cell count 11.3. Platelets 186. PC ratio 0.2 * 24 hour urine: Total protein 10mg/dL. P/C: 0.10. Total protein 24 hour: 287.5. 4. Bilobed placenta 5. anatomy ultrasound: Limited view of profile. 3VTV view not appreciated. Follow-up ultrasound in 2 weeks: normal profile and heart Declined genetic testing. Hinduism/culture needs? [] ask at next visit Flu: Completed Covid: Administered 12-04-23 TDAP: 04/19/24 OB - Problem Based A/P Additional Plan (1) Oligohydramnios: Status: Acute (2) Encounter for induction of labor: Status: Acute Plan Assessment:?? at 40.0 weeks gestation?? GBS negative? New diagnosis of oligohydramnios? Labor type:Induction of labor, cervical ripening to start Category 1 FHR pattern.? complicated by: Bleeding in early Hx of HTN-felt to be anxiety related, normal Pre E labs, elevated BP at 30 wks, no further elevation Bilobed placenta Plan:?? * ?Admit to L & D? * IV access: SL * Monitoring per policy: continuous ? * Candidate for analgesia of choice.? Planning unmedicated labor for pain management * Desired waterbirth, new diagnosis of oligohydramnios risks patient out of this option. * Reviewed risks and benefits of IOL with Cook balloon, pitocin vs cytotec/cervadil. Unable to use Cook at this time, cervix closed. Cytotec per protocol to start now. Pitocin to follow if needed. * Monitor blood pressures. No further elevation since 30 week visit at this time. * Patient encouraged to reposition and ambulate to promote physiologic labor and . * Anticipate ? Delivery/Labor/Induction Plan Plan: induction Induction method: per misoprostol protocol OB Exam Physical Exam Vital signs: Temp Pulse Resp BP 98.4 F 66 16 122/66 06/28/24 13:58 06/28/24 13:58 06/28/24 13:58 06/28/24 13:58 Narrative: Vitals Reviewed Constitutional:? Alert and oriented x3 HEENT:? Normocephalic, atraumatic Neck:? Supple Lungs:? Clear to auscultation bilaterally Heart:? Regular rate and rhythm, no murmur, rub or gallop Abdomen:? Soft, nontender, and gravid. Vertex by Best's, confirmed with cervical exam. Extremities:? No edema or erythema Cervix: closed /0%/-4 station/vertex by Best's NST: 135 bpm/moderate variability/+accelerations/-decelerations/rare mild contractions, pt is unaware of them Detailed Labor and Delivery Exam Patient Gravid: Yes
[2024-06-28] MEDS: miSOPROStoL 25 MCG/0.25 TABLET VAGINAL ×2 (16:30→20:36)
[2024-06-28 22:33] LABS: Basophils Percent Auto 0.3 % (0.0-3.0); Eosinophils Percent Auto 0.7 % (0.0-7.0); Hematocrit 38.8 % (33.0-51.0); Hemoglobin* 13.2 gm/dL (12.0-16.0); Immature Granulocytes Pct Auto 1.4 %; Lymphocytes Percent Auto 18.2 % (20-44); Mean Corpuscular HGB Conc 34 gm/dL (32-36); Mean Corpuscular Hemoglobin 31 pg (26-34); Mean Corpuscular Volume 92 fL (80-100); Monocytes Percent Auto 9.7 % (0.0-11.0); Neutrophils Percent Auto 69.7 % (42.0-72.0); Platelet Count* 174 K/uL (140-440); RDW Coefficient of Variation % 12.2 % (11.5-15.5)
[2024-06-28 23:13] LABS: Slide Review Reflex No
[2024-06-29] VITALS (38 sets, daily range): BP systolic 102–156; BP diastolic 51–87; PULSE 56–94; RESP 16–20; TEMP 36.6–37.1; O2SAT 98–100
[2024-06-29] MEDS: miSOPROStoL 25 MCG/0.25 TABLET VAGINAL ×2 (00:36→04:40)
[2024-06-29] MEDS: hydrOXYzine pamoate 25 MG CAPSULE 100 MG PO (00:45)
--- NOTE | 2024-06-29 07:37 | P.OBPN_ITS ---
Subjective Time Seen by Provider: 08:30 Date Seen: 06/29/24 Narrative: On initial assessment at 0730 Leila's contractions were not tracing. Per RN report she was evonne infrequently and not uncomfortable. We discussed options for continuing IOL including a 5th dose of Cytotec, Pitocin titration or cook catheter placement. On cervical exam she was found to be 1/60/high. Discussed that it would be difficult to place Cook but it could be attempted if she desired. It would be reasonable to switch to Pitocin titration given that her cervix if beginning to thin. Also discussed an additional dose of Cytotec and considering either 25mcg or 50mcg. We discussed the risks and benefits of each. She is interested in an additional dose of Cytotec but discussed that would like to get a better tracing of her contraction pattern before deciding on dose. At the time when the next dose was due at 08 she was evonne regularly on the monitor every 2-5 minutes. She states that over the last couple hours contractions have slowly been getting more uncomfortable in her back and lower abdomen but since getting up and moving around they have further increased. Switching to expectant management at this time. Will consider Pitocin titration if contractions decrease in frequency or intensity over the next couple of hours. Objective Vital Signs: Last Vital Signs Temp 98.2 F 06/29/24 04:45 Pulse 56 L 06/29/24 04:45 Resp 16 06/29/24 04:45 BP 126/57 L 06/29/24 04:45 Pulse Ox 99 06/28/24 22:03 Pelvic Exam Dilation (cm): 1 Effacement (%): 60 Station: high Contractions Monitor mode: External Contraction Frequency: 2-5 Contraction pattern: Regular Contraction intensity: Mild Assessment Assessment: induction ongoing Status: Category ll Heart Rate Baseline: 140 Climatology Professor Variability: Moderate (6-25) Monitor Accelerations: Present Monitor Decelerations: Variable (one late noted without recurrence ) Plan Plan: Assessment:?? at 40.1 weeks gestation?? GBS negative? Blood type:?O+ New diagnosis of oligohydramnios? Labor type:Induction of labor, Cytotec x4 doses Category 2 FHR pattern.? complicated by: bleeding in early , distant history of HTN never requiring medications and normal labs, bilobed placenta, oligohydramnios diagnosed at 40.0 weeks Plan:?? * Monitoring per policy: continuous, ? * Candidate for analgesia of choice.? Planning unmedicated labor for pain management * Desired waterbirth, diagnosis of oligohydramnios risks patient out of this option. * Monitor blood pressures. No further elevation since 30 week visit at this time. * Patient encouraged to reposition and ambulate to promote physiologic labor and . * Expectant management. Consider Pitocin titration later if needed. * Anticipate ?
[2024-06-29] MEDS: LACTATED RINGERS 1000 ML 1,000 ML 125 ML IV (16:34)
[2024-06-29] MEDS: OXYTOCIN 30 unit/500 ML in NS 30 UNIT/500 ML BAG IVPB (17:22)
--- NOTE | 2024-06-29 18:27 | P.OBPN_ITS ---
Subjective Time Seen by Provider: 16:30 Date Seen: 06/29/24 Narrative: Leila has continued to contract mostly 2-4 minutes apart but do space out. She has been rating her pain 7/10 all day. She denies leaking fluid and is appreciating good movement. She is agreeable to a cervical exam at this time and found to be 2/80/-2 with cervix posterior. We discussed options for continuing IOL of cook, Pitocin titration and expectant management. Discussed that cook may be difficult to place due to posterior position but possible. With oligohydramnios expectant management is not recommended. She is agreeable to Pitocin titration. She is considering an epidural to be able to rest but wants to see how uncomfortable she gets with Pitocin. Discussed the option of nitrous and IV fentanyl as well. Objective Vital Signs: Last Vital Signs Temp 98.2 F 06/29/24 15:46 Pulse 63 06/29/24 15:45 Resp 20 06/29/24 11:42 BP 119/61 06/29/24 15:45 Pulse Ox 100 06/29/24 11:42 Pelvic Exam Dilation (cm): 2 Effacement (%): 80 Station: -2 Contractions Monitor mode: External Contraction Frequency: 2-4 Contraction pattern: Regular Contraction intensity: Moderate Assessment Assessment: induction ongoing Station: -2 Status: Category ll Heart Rate Baseline: 135 Mcfp Variability: Moderate (6-25) Monitor Accelerations: Present Monitor Decelerations: Variable (occasional variables rare late without recurrence ) Plan Plan: Assessment:?? at 40.1 weeks gestation?? GBS negative? Blood type:?O+ New diagnosis of oligohydramnios? Labor type:Induction of labor, Cytotec x4 doses followed by Pitocin titration Category 2 FHR pattern.? complicated by: bleeding in early , distant history of HTN never requiring medications and normal labs, bilobed placenta, oligohydramnios diagnosed at 40.0 weeks Plan:?? * Monitoring per policy: continuous ? * Candidate for analgesia of choice.? Planning unmedicated labor for pain management but considering an epidural. Candidate for analgesia of choice. * Monitor blood pressures. Vital signs stable. * Patient encouraged to reposition and ambulate to promote physiologic labor and . * Initiate Pitocin titration at this time per policy * Anticipate ?
[2024-06-29] MEDS: LACTATED RINGERS 1000 ML 1,000 ML 999 ML IV ×2 (18:31→20:34)
[2024-06-29] MEDS: fentaNYL 100 MCG/2 ML inj 50 MCG IVP (19:45)
[2024-06-29] MEDS: BUPIVACAINE 0.25% PF 10 ML 10 ML ML EPIDURAL (19:56)
[2024-06-29] MEDS: PHENYLEPHRINE 100 MCG/ML SYRINGE IVP (20:10)
[2024-06-29] MEDS: ROPIVACAINE 0.2% 100 ml 100 ML 12 MG EPIDURAL (20:22)
--- NOTE | 2024-06-29 20:25 | PM.ANBPRC ---
[facility] Medical History Bilateral carpal tunnel syndrome ?G56.03 - Carpal tunnel syndrome, bilateral upper limbs (ICD-10) Hx of eczema ?Z87.2 - Personal history of diseases of the skin and subcutaneous tissue (ICD-10) Hx of migraines ?Z86.69 - Personal history of other diseases of the nervous system and sense organs (ICD-10) History of hypertension ?Z86.79 - Personal history of other diseases of the circulatory system (ICD-10) History of abnormal cervical Pap smear ?Z87.42 - Personal history of other diseases of the female genital tract (ICD-10) Surgical History Hx of LASIK ?Z98.890 - Other specified postprocedural states (ICD-10) History of colposcopy ?Z98.890 - Other specified postprocedural states (ICD-10) History of dental surgery ?Z92.89 - Personal history of other medical treatment (ICD-10) History of tonsillectomy ?Z90.89 - Acquired absence of other organs (ICD-10) Family History Sister Thyroid cancer Father FH: kidney cancer High blood pressure High cholesterol Obesity Maternal Grandmother Arthritis, rheumatoid Heart disease Paternal Grandfather Coronary artery disease Diabetes Seizure disorder Paternal Grandmother Coronary artery disease Breast cancer Migraines Maternal Grandfather Arthritis Parkinsonism Mother Anxiety Alcohol dependence Depression Social History Narrative: . No children. Formal exercise. Non-smoker. Alcohol, rare. No illicit drug use. 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 What is your current living situation?: I presently have a place to live Problems where you live: no known problems In the past 12 months, utilities in danger of being shut off: no In past 12 months, lack of transportation kept you from medical appts, meetings, work, or getting things needed for daily living: no In the past 12 mos, have been you worried that your food would run out before you had money to buy more?: never true In the past 12 mos, the food you bought just didn't last and you didn't have money to buy more?: never true Smoking Status: Never smoker How often does anyone, including family, friends and others, physically hurt you: never How often does anyone, including family, friends and others, insult or talk down to you: never How often does anyone, including family, friends and others, threaten you with harm: never How often does anyone, including family, friends and others, scream or curse at you: never Little interest or pleasure in doing things: not at all Feeling down, depressed, or hopeless: not at all Meds Home Medications and Allergies Home Medications ?Medication ?Instructions ?Recorded ?Confirmed ?Type docosahexaenoic acid 200 mg 200 mg PO DAILY 12/04/23 06/28/24 History capsule ( DHA) valacyclovir 1 gram tablet 2,000 mg PO BID PRN 01/01/24 06/28/24 History Allergies Allergy/AdvReac Type Severity Reaction Status Date / Time amoxicillin Allergy Verified 06/28/24 12:10 Penicillins Allergy Verified 06/28/24 12:10 peanut AdvReac scratchy Verified 06/28/24 12:10 throat Results Labs Labs: Laboratory Results - last 24 hr 06/28/24 06/28/24 22:04 22:23 WBC 11.10 H RBC 4.20 Hgb 13.2 Hct 38.8 MCV 92 MCH 31 MCHC 34 RDW Coeff of Chante 12.2 Plt Count 174 Neut % (Auto) 69.7 Lymph % (Auto) 18.2 L [place] % (Auto) 9.7 Eos % (Auto) 0.7 Baso % (Auto) 0.3 Neut # (Auto) 7.70 H Lymph # (Auto) 2.00 [place] # (Auto) 1.10 H Eos # (Auto) 0.10 Baso # (Auto) 0.00 Abs Immat Gran (auto) 0.20 Imm/Tot Granulo (auto) 1.4 Blood Type O Positive Antibody Screen NEGATIVE Vital Signs Vital Signs: Last Vital Signs Temp 98.2 F 06/29/24 15:46 Pulse 69 06/29/24 20:22 Resp 20 06/29/24 11:42 BP 145/68 H 06/29/24 20:22 Pulse Ox 99 06/29/24 19:39 Weight: 103.504 kg Anesthesia Procedures Epidural Insertion Patient Location: OB Start Time: 07:30 Stop Time: 08:15 Start Date: 06/29/24 Stop Date: 06/29/24 Reason for Block: procedure for pain Patient Position: sitting Performed By: Renuka Rogers Preanesthetic Checklist: IV checked, risks and benefits discussed, monitors and equipment checked, timeout performed and anesthesia consent Prep: chlorhexidine gluconate Monitoring: blood pressure monitoring, continuous pulse oximetry and heart rate Approach: midline Vertebral Space: lumbar (1-5) Epidural Technique: GWEN saline Needle Type: Tuohy needle Injection Technique: continuous catheter Needle gauge: 17 Needle Length (cm): 10 cm Needle Insertion Depth (cm): 7 Catheter Gauge: 19 Catheter Type: multi-orifice Catheter at skin depth (cm): 12 Test Dose Result: negative and lidocaine 1.5% with epinephrine 1 to 200,000
[2024-06-29 22:43] LABS: Hematocrit 37.7 % (33.0-51.0); Hemoglobin* 12.9 gm/dL (12.0-16.0); Mean Corpuscular HGB Conc 34 gm/dL (32-36); Mean Corpuscular Hemoglobin 32 pg (26-34); Mean Corpuscular Volume 92 fL (80-100); Platelet Count* 171 K/uL (140-440); Red Blood Count 4.08 m/uL (4.00-5.20); White Blood Count* 15.75 K/uL (4.50-11.00)
[2024-06-29 22:45] LABS: Slide Review Reflex No
--- NOTE | 2024-06-29 22:51 | P.OBPN_ITS ---
Subjective Date Seen: 06/29/24 Narrative: Leila has continued to receive Pitocin titration. She also received an epidural and is now resting comfortably. She did have blood pressure drops initially after by her and baby have since recovered. Will continue to reposition and support the process. She did have 2 elevated blood pressures after the epidural but have been normal since that time. Labs were collected and are pending. She had SROM with clear fluids. Will monitor VS. Objective Vital Signs: Last Vital Signs Temp 98.2 F 06/29/24 20:59 Pulse 68 06/29/24 22:46 Resp 18 06/29/24 20:59 BP 111/56 L 06/29/24 22:46 Pulse Ox 99 06/29/24 19:39 Pelvic Exam Dilation (cm): 3 Effacement (%): 80 Station: -1 Comments: Per RN exam Contractions Monitor mode: External Contraction Frequency: 1-3 Contraction pattern: Regular Contraction intensity: Moderate Assessment Assessment: induction ongoing Station: -1 Amniotic Membrane Status: SROM Status: Category ll Heart Rate Baseline: 140 [employer] Narcotics [employer] Variability: Moderate (6-25) Monitor Accelerations: Present Monitor Decelerations: Variable (occasional ) Plan Plan: Assessment:?? at 40.1 weeks gestation?? GBS negative? Blood type:?O+ Oligohydramnios? Labor type:Induction of labor, Pitocin titration Category 2 FHR pattern.? Elevated blood pressure x2 15 minutes apart. None since. Labs pending. complicated by: bleeding in early , distant history of HTN never requiring medications and normal labs, bilobed placenta, oligohydramnios diagnosed at 40.0 weeks Plan:?? * Monitoring per policy: continuous ? * Epidural in place. * Monitor vital signs. * Assist patient to reposition to promote physiologic labor and . * Continue Pitocin titration per policy * Anticipate
[2024-06-29 22:54] LABS: Creatinine* 0.5 mg/dL (0.5-1.5); Estimated Glomerular Filt Rate 128 ml/min
[2024-06-29 22:55] LABS: Alanine Aminotransferase* 14 U/L (4-35); Aspartate Amino Transferase* 23 U/L (12-35); Blood Urea Nitrogen* 8 mg/dL (5-24)
[2024-06-29 22:56] LABS: Total Protein Urine 14 mg/dL
[2024-06-29 22:57] LABS: Creatinine Urine 80.7 mg/dL; Protein Creatinine Ratio Urine 0.17 (0-0.19)
[2024-06-30] VITALS (50 sets, daily range): BP systolic 101–153; BP diastolic 53–95; PULSE 61–95; RESP 16–18; TEMP 36.3–37.2; O2SAT 97–100
[2024-06-30] MEDS: LACTATED RINGERS 1000 ML 1,000 ML 125 ML IV (01:22)
[2024-06-30] MEDS: LIDOCAINE 1 % PF 30 ML INJECTION (06:00)
--- NOTE | 2024-06-30 06:17 | W.PM.VAGDE_ITS ---
OB Procedure Vag Delivery Mother Details Mother Details: Leila is a 34 year-old, 1, Para 1, admitted on 06/28/24 at 40.0 Days gestation for IOL for newly diagnosed oligohydramnios. She was induced with Cytotec followed by Pitocin. She received an epidural which accidently and was no longer infusing for part of the 2nd stage. She was bolused but it did not last the entire second stage and she was unmedicated at the end. : 1 Para: 1 Weeks Gestation: 40.2 Admission Date: 06/28/24 Additional Details Amniotic Membrane Status: SROM Amniotic Membrane Rupture Date: 06/29/24 Amniotic Membrane Rupture Time: 22:42 Amniotic Membrane Fluid Description: Clear Analgesia/Anesthesia Type: Epidural Waterbirth: No Pitcoin: Yes Intrapartal Events: Labor Induction and Prolonged 2nd Stage >2.5 Hrs Induction Method: per misoprostol protocol and per pitocin protocol Heart: heart tones during second stage were [] Delivery Details Delivery Date: 06/30/24 Delivery Time: 05:28 Infant Gender: Male Infant Viability: Alive; Heart Rate Present Position at Delivery: OA Delivery Details: Patient was admitted for IOL for newly diagnosed oligohydramnios. She was induced with Cytotec followed by Pitocin. She progressed slowly to complete and pushed for over 4 hours. She made progress during that time. There were variable decels but with quick recovery to baseline. Her epidural became disconnected during the second stage. It was bolused but did not give her complete coverage at the end of pushing. She did not actively push for about 45minutes of the second stage due to that. SROM noted at 2242 with clear fluid. Patient was complete at 0017 and pushing at 0115. of a viable male at 0528 on her back in the bad after pushing in multiple positions. Vertex delivered OA. No nuchal cord or shoulder. Body delivered easily and without incident. passed to mothers abdomen with a vigorous cry. Cord was clamped and cut at 1 minute due to a very short cord. Mom was unable to get baby high than her umbilicus due to this short cord so the option was given to cut it early which she desired. A PGARS were 8 at one minute and 9 at five minutes respectively. Mouth was bulb suctioned. Intact placenta with a 3 vessel cord delivered spontaneously at 0532. The placenta was bilobed and sent to pathology. Fundus firm. 2nd degree identified and repaired in typical fashion. QBL 175 cc. Mother and baby stable; mother plans to breastfeed. weight pending.? 1 Minute Interval Total Score: 8 5 Minute Interval Total Score: 9 Additional Details Shoulder Dystocia: No Placenta Delivery Time: 05:32 Placental Delivery Description: Spontaneous Delivery repair: Vicryl Procedure Done: Global Blood Loss: 175 Laceration: Perineal - 2nd Degree Episiotomy Description: None Blood Loss Measurement Type: QBL Bakri Used: No Sponge/Need Count Correct: Yes Cord Vessel Description: 3 Vessels (very short cord) Event Summary Status: Mother and infant were stable after delivery. Disposition: floor
[2024-06-30] MEDS: IBUPROFEN 600 MG TABLET PO ×3 (06:30→19:34)
--- NOTE | 2024-06-30 06:45 | PM.ANPOST ---
Post Anesthesia Note Post Anesthesia Note Patient seen: Inpatient Respiratory Status: adequate Cardiovascular Status: adequate Mental Status: baseline Pain: adequate Temp: baseline Anesthetic awareness: N/A Complications: none Follow care: none
--- NOTE | 2024-06-30 06:56 | PM.OBPNVD1 ---
OB - PN:Subj Subjective Date Seen: 06/30/24 Narrative: NSVB this morning without complication. Intermittent elevations of BP noted in chart. No CONTRERAS, vision changes, or RUQ pain. Bonding with baby currently. Bleeding post within normal limits. OB - PN: Obj Exam Physical Exam: Vital signs: Temp Pulse Resp BP Pulse Ox 98.0 F 85 18 148/68 H 98 06/30/24 04:03 06/30/24 06:51 06/30/24 05:50 06/30/24 06:51 06/30/24 03:55 Narrative: GENERAL APPEARANCE:? normal affect, alert, no distress MOOD:? appropriate EXTREMITIES:? +3/4 reflexes with 1 beat clonus bilaterally of lower extremities OB - PN: Obj Data Labs Labs: Laboratory Results - last 24 hr 06/29/24 06/29/24 21:52 22:30 WBC 15.75 H RBC 4.08 Hgb 12.9 Hct 37.7 MCV 92 MCH 32 MCHC 34 Plt Count 171 BUN 8 Creatinine 0.5 Estimated GFR 128 AST 23 ALT 14 Urine Creatinine 80.7 Protein/Creatinin Ratio 0.17 Urine Total Protein 14 OB - PN: A/P Delivery Assessment and Plan (1) care and examination of lactating mother: Status: Acute (2) Second degree perineal laceration: Status: Acute (3) Gestational hypertension: Status: Acute Plan Labs completed last evening and normal. No indication of preeclampsia. Anticipate routine care. , may see if needed? Hgb pending. ? GHTN Labs WNL Discharge home with BP cuff if does not already have one?and blood pressures remain labile in the period inpatient. Reviewed signs and symptoms to report. Plan day: 0 Plan: routine care
[2024-06-30] MEDS: ACETAMINOPHEN 500 MG TABLET 1000 MG PO ×3 (08:37→22:44)
[2024-06-30] MEDS: DOCUSATE SODIUM 100 MG CAPSULE PO (08:39)
[2024-07-01] MEDS: IBUPROFEN 600 MG TABLET PO ×3 (01:11→18:35)
[2024-07-01 01:13] VITALS: BP 104/67; PULSE 70; RESP 16; O2SAT 97
[2024-07-01 06:54] LABS: Hemoglobin* 11.4 gm/dL (12.0-16.0)
[2024-07-01 07:39] LABS: Rapid Plasma Reagin (RPR) Non Reactive (Non Reactive)
[2024-07-01] MEDS: ACETAMINOPHEN 500 MG TABLET 1000 MG PO ×3 (08:32→23:38)
[2024-07-01] MEDS: DOCUSATE SODIUM 100 MG CAPSULE PO (08:33)
[2024-07-01 08:54] VITALS: BP 110/70; PULSE 60; RESP 16; TEMP 36.6; O2SAT 96
[2024-07-01 12:00] VITALS: BP 104/73; PULSE 68; RESP 16; O2SAT 96
--- NOTE | 2024-07-01 15:37 | PM.OBDSVD1 ---
DS: Providers Provider Date Seen: 07/01/24 Date of admission: 06/28/24 15:50 Primary care physician: Lakisha Kuhn, BRAID MAKER, DISPATCHER [employer] Admitting Clinician: Joo Duarte CNM Attending Physician on discharge: Tiffanie Mccray CNM DS: Diagnosis Discharge Diagnosis (1) care and examination of lactating mother: Status: Acute (2) Gestational hypertension: Status: Acute (3) Lactating mother: Status: Acute Exam Const: Vital Signs, click to edit/add: Vital Signs - 24 hr 06/30/24 16:47 06/30/24 21:11 07/01/24 01:13 Temperature 97.6 F 97.6 F Pulse Rate [Blood Pressure Cuff] 85 67 70 Respiratory Rate 16 16 16 Blood Pressure [Le ft Arm] 112/72 113/67 104/67 Pulse Oximetry 97 97 Oxygen Delivery Me thod Room Air Room Air Room Air 07/01/24 08:54 07/01/24 12:00 Temperature 98 F Pulse Rate [Blood Pressure Cuff] 60 68 Respiratory Rate 16 16 Blood Pressure [Le ft Arm] 110/70 104/73 Pulse Oximetry 96 96 Oxygen Delivery Me thod Room Air Room Air OB - DS: Summary Hospital Course Hospital Course: Leila is a 34 y.o. G 1 P 1 who was admitted to L & [facility] for induction of labor for oligohydramnios. ?She had a NVD that was uncomplicated. The patient feels well. ?The pain is well controlled with current medications. ?She has no new complaints. ?She is breast feeding and reports things are going well. the patient has done well.? Vitals have been stable.? She has remained afebrile.? Has a good appetite, is tolerating a general diet. ?She is voiding without difficulty.? She is passing gas and has not had a bowel movement.? She is ambulating and denies any dizziness.? Has small amount of rubra lochia. She did initially desire discharge today but encouraged to stay for additional support. Problems: difficulties, GHTN plan: Discharge home with baby. Follow up in 2 weeks and 6 weeks. , may see if needed Hgb 11.4. GHTN diagnosed by elevated BP greater than 4 hours apart Anticipate discharge tomorrow. Peripartum Data delivery method: Vaginal Infant Gender: Male Time Spent with Patient Time attestation: Total time spent providing and/or coordinating discharge services: Discharge Plan Discharge Date of Admission: 06/28/24 15:50 Attending Physician on Admission: Joo Duarte Primary Care Provider: Lakisha Kuhn Discharge Medications: No Action valacyclovir 1 gram tablet 2,000 mg PO BID PRN DHA 200 mg capsule 200 mg PO DAILY Follow Up Appointments: Lakisha Kuhn, BRAID MAKER, DISPATCHER [employer] [Primary Care Provider] -
--- NOTE | 2024-07-01 15:48 | P.OBPN_ITS ---
OB - PN:Subj Subjective Date Seen: 07/01/24 Narrative: Leila is a 34 y.o. G 1 P 1 who was admitted to [facility] & [facility] for induction of labor for oligohydramnios. ?She had a NVD that was uncomplicated. The patient feels well. ?The pain is well controlled with current medications. ?She has no new co mplaints. ?She is breast feeding and reports things are going well. the patient has done well.? Vitals have been stable.? She has remained afebrile.? Has a good appetite, is tolerating a general diet. ?She is voiding without difficulty.? She is passing gas and has not had a bowel movement.? She is ambulating and denies any dizziness.? Has small amount of rubra lochia. She did initially desire discharge today but encouraged to stay for additional support. OB - PN: Obj Exam Physical Exam: Vital signs: Temp Pulse Resp BP Pulse Ox O2 Del Method 98 F 68 16 104/73 96 Room Air 07/01/24 08:54 07/01/24 12:00 07/01/24 12:00 07/01/24 12:00 07/01/24 12:00 07/01/24 12:00 Narrative: GENERAL APPEARANCE:? normal affect, alert, no distress MOOD:? appropriate CHEST:? clear to auscultation HEART:? regular rate and rhythm ABDOMEN:? soft, non-tender the uterine fundus is At Umbilicus, Midline and is appropriate for the stage of recovery. PERINEUM:? mild edema of the perineum, there is a Perineal Laceration, 2nd degree that is healing well. EXTREMITIES:? normal and no edema OB - PN: Obj Data Labs Labs: Laboratory Results - last 24 hr 06/28/24 07/01/24 22:23 06:30 Hgb 11.4 L RPR Screen Non Reactive OB - PN: A/P Delivery Assessment and Plan (1) care and examination of lactating mother: Status: Acute (2) Gestational hypertension: Status: Acute (3) Lactating mother: Status: Acute Plan day: 1 Plan: routine care Comments: plan: , may see if needed Hgb 11.4. GHTN diagnosed by elevated BP greater than 4 hours apart. Continue to monitor blood pressure. Anticipate discharge tomorrow.
[2024-07-01 20:12] VITALS: BP 119/77; PULSE 60; RESP 16; TEMP 37
[2024-07-01 23:43] VITALS: BP 127/71; PULSE 59; RESP 16; TEMP 36.7; O2SAT 98
[2024-07-02] MEDS: IBUPROFEN 600 MG TABLET PO ×2 (02:41→10:29)
[2024-07-02 04:45] VITALS: BP 107/70; PULSE 52; RESP 16; TEMP 36.6; O2SAT 97
[2024-07-02] MEDS: DOCUSATE SODIUM 100 MG CAPSULE PO (07:50)
[2024-07-02] MEDS: ACETAMINOPHEN 500 MG TABLET 1000 MG PO (07:53)
[2024-07-02 07:56] VITALS: BP 112/66; PULSE 55; RESP 17; TEMP 36.4; O2SAT 99
--- NOTE | 2024-07-02 09:30 | PM.OBDSVD1 ---
DS: Providers Provider Date Seen: 07/02/24 Date of admission: 06/28/24 15:50 Primary care physician: Lakisha Kuhn APRN, [employer]IC [employer]EARCHER Admitting Clinician: Joo Duarte CNM Attending Physician on discharge: Joo Duarte CNM Date of Discharge: 07/02/24 DS: Diagnosis Discharge Diagnosis (1) Lactating mother: Status: Acute (2) Gestational hypertension: Status: Acute (3) Second degree perineal laceration: Status: Acute (4) care and examination of lactating mother: Status: Acute Exam Narrative: Exam Narrative: GENERAL APPEARANCE:? normal affect, alert, no distress? MOOD:? appropriate? CHEST:? clear to auscultation and percussion? HEART:? regular rate and rhythm? ABDOMEN:? soft, non-tender the uterine fundus is U/2 and is appropriate for the stage of recovery.? PERINEUM:? mild edema of the perineum, there is a 2nd degree laceration that is healing well.? EXTREMITIES:? normal and no edema? Const: Vital Signs, click to edit/add: Vital Signs - 24 hr 07/01/24 12:00 07/01/24 20:12 07/01/24 23:43 Temperature 98.6 F 98.1 F Pulse Rate [Blood Pressure Cuff] 68 60 59 L Respiratory Rate 16 16 16 Blood Pressure [Le ft Arm] 104/73 119/77 127/71 Pulse Oximetry 96 98 Oxygen Delivery Me thod Room Air Room Air Room Air 07/02/24 04:45 07/02/24 07:56 Temperature 98 F 97.6 F Pulse Rate [Blood Pressure Cuff] 52 L 55 L Respiratory Rate 16 17 Blood Pressure [Le ft Arm] 107/70 112/66 Pulse Oximetry 97 99 Oxygen Delivery Me thod Room Air Room Air Documenting provider has reviewed patient's vital signs: yes OB - DS: Summary Hospital Course Hospital Course: Leila is a 34 year old G 1 P 1 at 40.2 weeks gestation that was admitted to the Center on 06/28/24 for IOL. She had an uncomplicated vaginal delivery. She delivered a viable male infant. She is breast feeding and feels that it is improving and denies current concerns. the patient has done well. Her pain is well controlled with current medications.? She has no new complaints.? Urinary output is adequate and she is voiding without difficulty.? Has a good appetite, is tolerating a general diet, is passing flatus, and has had a bowel movement without difficulty.? Has scant amount of rubra lochia.? She is ambulating well. Bllod pressures since delivery have been normal. She has a blood pressure cuff at home and will monitor blood pressures twice a day. Peripartum Data Infant delivery method: Vaginal Laceration description: Perineal - 2nd Degree Episiotomy description: None complications: none [place] Infant Gender: Male Infant Discharge Plan: Home Status at Discharge Functional status at discharge: independent ambulation Overall status at discharge: patient is progressing back to baseline Time Spent with Patient Time attestation: Total time spent providing and/or coordinating discharge services: Discharge Plan Discharge Disposition: Home, Self-Care Date of Admission: 06/28/24 15:50 Attending Provider on Discharge: Edwige Wilson Primary Care Provider: Lakisha Kuhn Condition: Stable Anticipated Discharge Date/Time: 07/02/24 11:00 Discharge Medications: New docusate sodium 100 mg Capsule 100 mg PO DAILY Qty: 90 0RF Rx Instructions: Take 1-2 tablets daily as needed for constipation. ibuprofen 600 mg Tablet 600 mg PO Q6H PRNQty: 30 0RF Continued DHA 200 mg capsule 200 mg PO DAILY Discontinued valacyclovir 1 gram tablet 2,000 mg PO BID PRN Discharge Orders: Discharge Order (Routine); Ordered 07/02/24 Ordered By: Edwige Wilson Patient Education: OB Vaginal/Breast Feeding Additional Instructions: Discharge instructions were reviewed with the patient including signs and symptoms of infection and home going medications.? Lifting Restrictions: 20 pounds for 6? weeks? ?? Do not drive while taking narcotic pain meds.? Off Work or School for 6 weeks.? ?? Symptoms to report to doctor:? -Bleeding that saturates more than one pad per hour? -Passing clots larger than the size of a golf ball? -Pain not relieved by prescribed medication? -Fever above 100.4 degrees Fahrenheit? -A foul vaginal odor? -Difficulty in emotions, mood and functions? -Thoughts of hurting yourself and/or ? -Painful, reddened area in your breast? -Any drainage, redness or tenderness in your IV/epidural site? -Severe headache that doesn't improve after taking medications? -Changes in vision, including temporary loss of vision, blurred vision, and/or light sensitivity? -Upper abdominal pain (usually under ribs on the right side)? -Decrease in urination or painful, frequent urinating? -Chest pain? -Shortness of breath? -Tenderness or pain with redness and/swelling in the calf(s) of your leg? ?? Monitor blood pressures at home. Follow Up in clinic in 2 and 6 weeks.? ?? consultation services are available to all mothers and babies for the first year after delivery.? To make an appointment, please call [phone].? Activity Level: Activity as Tolerated Discharge Diet: Regular Follow Up Appointments: [facility] [Provider Group] Forms: MyHealth Info Instructions
== END 2024-07-02 13:04 | disposition home or self-care (01) | DRG 560 ==
LOC: OB OUT 07-07 09:14
PROVIDERS: Advanced Practice Midwife; Admitting Provider Advanced Practice Midwife; PCP Nurse Practitioner Family; Visit Provider Advanced Practice Midwife
DX: O70.1 Second degree perineal laceration during delivery (principal); O34.43 Maternal care for other abnormalities of cervix, third trimester; N84.1 Polyp of cervix uteri; Z3A.40 40 weeks gestation of pregnancy; Z37.0 Single live birth; O43.193 Other malformation of placenta, third trimester; O13.5 Gestational [pregnancy-induced] hypertension without significant proteinuria, complicating the puerperium; Z86.79 Personal history of other diseases of the circulatory system
CPT/HCPCS: 01967; 36415; 59200; 76819; 82565; 82570; 84156; 84450; 84460; 84520; 85018; 85025; 85027; 86592; 86850; 86900; 86901; 88307; G0463; A9270; J0665; J2001; J2371; J2795; J3010; J7120

== ENCOUNTER 2024-07-04 15:15 | Outpatient (CLI) | payer BC, SELFPAY ==
--- NOTE | 2024-07-04 17:10 | P.LACCB_ITS ---
Consult Note - Mom Date of Visit Date of visit: 07/04/24 netsuite consultant: Kerri Huertas Visit Code: Visit Patient's Information Phone number: [phone] : 1 Para: 1 Allergies amoxicillin Allergy (Verified 06/28/24 12:10) Penicillins Allergy (Verified 06/28/24 12:10) peanut Adverse Reaction (Verified 06/28/24 12:10) scratchy throat Mother's Medical History: Medical History (Updated 07/01/24 @ 15:37 by Tiffanie Mccray CNM) Bilateral carpal tunnel syndrome ?G56.03 - Carpal tunnel syndrome, bilateral upper limbs (ICD-10) Hx of eczema ?Z87.2 - Personal history of diseases of the skin and subcutaneous tissue (ICD-10) Hx of migraines ?Z86.69 - Personal history of other diseases of the nervous system and sense organs (ICD-10) History of hypertension ?Z86.79 - Personal history of other diseases of the circulatory system (ICD- 10) History of abnormal cervical Pap smear ?Z87.42 - Personal history of other diseases of the female genital tract (ICD-10) Delivery Information Delivery type: Vaginal Weeks Gestation: 40+2 Gestational Age: AGA Weight: 3.41 kg Discharge Weight: 3.164 kg Baby's Information Medications: none Baby's Age at Visit: 4 days Baby's Provider or Clinic: [facility], has appt this afternoon Jaundice: Yes Reason for Consult Reason for Consult: mom's milk supply; baby in ER last night, has dehydration, recommended to give a bottle or two to help increase his fluids and calories. Past Experience Past Experience: No Current Frequency of Day Feedings: every hour, 20 min on one side, prefers left over right Both Breasts: No Suck: strong Latch: mom thinks good Length of Time: 20 min Goals: i really want this to work Pumping Pumping: Yes Quantity Pumped: 10 ml from left, drops on right side Supplementing EMB Supplement: Yes Formula Supplement: Yes (has taken 1/2 oz and 1 oz in two bottles since last night) Baby Elimination Number of Wet Diapers a Day: 1 Number of BM a Day: 0 Breast/Nipple Condition Breast Information: Mom with tubular, wide spaced breasts. Reports areola darkening during but no change in breast size. Feels milk coming in a little on her left breast, no changes on the right side Engorgement: No Maternal Nipple Condition - Left: Common Nipple Maternal Nipple Condition - Right: Common Nipple Sore Nipples: No Onsite Pre-Feed weight: 3.054 kg Pre-Nursing Left Nipple: Within Normal Limits Pre-Nursing Right Nipple: Within Normal Limits Post-Nursing Left Nipple: Within Normal Limits Post-Nursing Right Nipple: Within Normal Limits Assessments/Interventions Assessments/Interventions: Developed feeding/pumping plan for mom to help stimulate supply; also rxpressed concern over breast shape and no changes during as a risk factor for low milk supply. Mom teary with this information, but wants what is best for baby. Discussed feeding every 2-3 hours, 10-15 min on each side, if he will. No more than so he doesn't waste calories Mom to pump after feedings for 15-20 minutes if able Give any EBM to baby offer 2 oz formula to baby and allow him to take what he wants/needs. Mom can try galactogogues if desires as this may help stimulate supply - won't know if she doesn't try. Also recommend skin to skin so she has bonding time with baby and this may help her milk supply. Reviewed pump set up with mom while dad attempted to feed baby - baby very sleepy and not willing to drink from a bottle even though it has been 3 hours since last feed Upon completion of appt with mom walked family over to [facility] for baby appt Follow up in 2 days via phone call to mom to evaluate progress. time spent reviewing records and face to face with mom, dad and baby: 45 minutes Meds Home Medications and Allergies Home Medications ?Medication ?Instructions ?Recorded ?Confirmed ?Type docosahexaenoic acid 200 mg 200 mg PO DAILY 12/04/23 06/28/24 History capsule ( DHA) Allergies Allergy/AdvReac Type Severity Reaction Status Date / Time amoxicillin Allergy Verified 06/28/24 12:10 Penicillins Allergy Verified 06/28/24 12:10 peanut AdvReac scratchy Verified 06/28/24 12:10 throat
== END 2024-07-04 15:16 | disposition home or self-care (01) ==
LOC: OB LAC 17:05
PROVIDERS: PCP Nurse Practitioner Family; Visit Provider Obstetrics & Gynecology
DX: Z39.1 Encounter for care and examination of lactating mother (principal)
CPT/HCPCS: G0463

== ENCOUNTER 2024-07-08 15:15 | Outpatient (CLI) | payer BC, SELFPAY | END 2024-07-08 15:16 | disposition home or self-care (01) | LOC: NFLDREF 07-10 10:17 | PROVIDERS: PCP Nurse Practitioner Family; Referring Provider Nurse Practitioner Family; Visit Provider Advanced Practice Midwife | DX: R30.0 Dysuria (principal) | CPT/HCPCS: 87086 ==

== ENCOUNTER 2025-05-12 11:59 | Outpatient (CLI) | payer OTHER, SELFPAY ==
--- NOTE | 2025-05-12 12:15 | CRLHL7_ITS ---
For Patients: As a result of the Century Cures Act, medical imaging exams and procedure reports are released immediately into your electronic medical record. You may view this report before your referring provider. If you have questions, please contact your health care provider. INDICATION: Dating. TECHNIQUE: Real time cobb scale imaging of the fetus was performed. Transvaginal. LMP: 03/09/2025. VU by LMP: 12/18/2025. GA: 9 weeks 1 day. Previous US: No. CRL: 2.5 cm. 9 w 1 d. VU: 12/14/2025. FHR: 183 BPM. Gestational sac: 4.5 cm. Appears within normal limits. Yolk sac: 3.6 mm. Appears within normal limits. Right ovary: Within normal limits. 3.3 x 2.3 x 2.8 cm. CL. Left ovary: N/V. IMPRESSION: 1. Sonographic gestational age 9 weeks 1 day and sonographic due date 12/14/2025. 2. Small uterine fibroid is present adjacent to the gestational sac and measures 0.8 x 1.0 x 0.7 cm. 3. Subchorionic hemorrhage measures 2.4 x 0.4 x 1.5 cm. 4. Corpus luteal cyst right ovary. Non-visualization of the left ovary. Alexander Baltazar M.D. Diagnostic Radiologist [email or web address] ADALID/adonay DW/Dictated by: Alexander Baltazar MD @ 05/13/2025 9:14:00 PM (Electronically Signed)
== END 2025-05-12 12:00 | disposition home or self-care (01) ==
LOC: US 12:00
PROVIDERS: PCP Nurse Practitioner Family; Visit Provider Registered Nurse
DX: Z34.91 Encounter for supervision of normal pregnancy, unspecified, first trimester (principal); O20.9 Hemorrhage in early pregnancy, unspecified; O34.11 Maternal care for benign tumor of corpus uteri, first trimester; O34.81 Maternal care for other abnormalities of pelvic organs, first trimester; N83.11 Corpus luteum cyst of right ovary; Z3A.09 9 weeks gestation of pregnancy
CPT/HCPCS: 76817

== ENCOUNTER 2025-05-12 12:41 | Outpatient (CLI) | payer OTHER, SELFPAY | END 2025-05-12 12:42 | disposition home or self-care (01) | PROVIDERS: PCP Nurse Practitioner Family; Visit Provider Registered Nurse | DX: Z34.81 Encounter for supervision of other normal pregnancy, first trimester (principal) | CPT/HCPCS: 82565; 82570; 83020; 83021; 84156; 84450; 84460; 84520; 85660; 86592; 86703; 86704; 86762; 86787; 86803; 86850; 87086; 87340 ==

== ENCOUNTER 2025-05-14 13:35 | Outpatient (CLI) | payer OTHER, SELFPAY | END 2025-05-14 13:36 | disposition home or self-care (01) | LOC: NFLDREF 05-17 01:35 | PROVIDERS: PCP Nurse Practitioner Family; Referring Provider Nurse Practitioner Family; Visit Provider Registered Nurse | DX: O16.1 Unspecified maternal hypertension, first trimester (principal); Z3A.09 9 weeks gestation of pregnancy | CPT/HCPCS: 82570; 84156 ==

== ENCOUNTER 2025-06-14 14:20 | Outpatient (CLI) | payer OTHER, SELFPAY | END 2025-06-14 14:21 | disposition home or self-care (01) | LOC: FRMREF 14:21 | PROVIDERS: PCP Nurse Practitioner Family; Visit Provider Advanced Practice Midwife | DX: Z34.82 Encounter for supervision of other normal pregnancy, second trimester (principal) | CPT/HCPCS: 84450; 84460 ==

== ENCOUNTER 2025-07-20 12:49 | Outpatient (CLI) | payer OTHER, SELFPAY ==
--- NOTE | 2025-07-20 13:00 | CRLHL7_ITS ---
For Patients: As a result of the Century Cures Act, medical imaging exams and procedure reports are released immediately into your electronic medical record. You may view this report before your referring provider. If you have questions, please contact your health care provider. OBSTETRICAL ULTRASOUND ??? ANATOMY SURVEY, 07/20/2025 INDICATION: anatomy survey. CLINICAL HISTORY: LMP: 03/09/2025 VU by LMP: 12/14/2025 Gestational age: 19 weeks 0 days TECHNIQUE: Real-time cobb-scale transabdominal imaging of the fetus was performed. PRIOR ULTRASOUND: 05/12/2025 FINDINGS: position: Transverse, head to maternal left Cervix: Visualized Technique: Transabdominal Length of closed cervix: 3.8 cm Placenta position: Posterior Technique: Transabdominal Placenta tip to internal os: 3.5 cm Umbilical cord: 3-vessel cord Placental insertion: Central Amniotic fluid: 3.5 cm SDP (greater than/equal to 2 to less than 8 cm) ANATOMY SURVEY: Observed Structures Cerebellum: Yes; 1.9 cm, 19 weeks 5 days Cisterna magna: Yes; 4.1 mm Nuchal fold: Suboptimal visualization Lateral ventricle: Yes; 6.8 mm CSP: Suboptimal visualization Midline falx: Yes Choroid plexus: Yes Spine: Suboptimal visualization Stomach: Yes Abdominal cord insert: Yes Urinary bladder: Yes Kidneys: Yes Diaphragm: Yes Nose/lips: Yes Orbital view: Yes Profile: Yes Upper extremities: Yes Lower extremities: Yes Hands: Yes Feet: Yes 4-chamber heart: Yes LVOT: Suboptimal visualization RVOT: Yes 3VV: Yes 3VTV: Suboptimal visualization BIOMETRY BPD: 4.4 cm, 19 weeks 2 days, 64.1% HC: 16.3 cm, 19 weeks 1 day, 47.1% AC: 14.8 cm, 20 weeks 0 days, 79.5% FL: 2.8 cm, 18 weeks 4 days, 29.0% FL/AC: 19.0% HC/AC ratio: 1.10 heart rate: 138 bpm age by this ultrasound: 19 weeks 2 days VU by this ultrasound: 12/12/2025 Estimated weight: 288.1 grams (0 pounds 10 ounces) Percentile by VU: 67.2% IMPRESSION: 1) Concordance of clinical and sonographic dating. 2) Incomplete visualization of the nuchal fold, cavum septum pellucidum, spine, LVOT and 3-vessel trachea view due to position. 3) Left renal pelvis measures 4 mm. Right renal pelvis measures 3 mm. Follow-up ultrasound in the third trimester is recommended. 4) Remainder of the anatomic survey is normal. ALEXANDER HENRIQUEZ M.D. Diagnostic Radiologist [facility] [employer]. [email or web address] Transcribed: 3:[address]/Dictated by: Alexander Henriquez MD @ 07/20/2025 2:34:00 PM (Electronically Signed)
== END 2025-07-20 12:50 | disposition home or self-care (01) ==
LOC: US 12:49
PROVIDERS: PCP Nurse Practitioner Family; Visit Provider Advanced Practice Midwife
DX: Z34.92 Encounter for supervision of normal pregnancy, unspecified, second trimester (principal); Z3A.19 19 weeks gestation of pregnancy
CPT/HCPCS: 76805

== ENCOUNTER 2025-08-17 08:01 | Outpatient (CLI) | payer OTHER, SELFPAY ==
--- NOTE | 2025-08-17 08:15 | CRLHL7_ITS ---
For Patients: As a result of the Cures Act, medical imaging exams and procedure reports are released immediately into your electronic medical record. You may view this report before your referring provider. If you have questions, please contact your health care provider. OB ULTRASOUND, 08/17/2025 CLINICAL HISTORY: Multiple suboptimal views, left renal pelvis 4 mm. TECHNIQUE: Real time cobb scale imaging of the fetus was performed. Transabdominal imaging performed. COMPARISON: 07/20/2025, 05/12/2025. FINDINGS: VU by LMP: 12/14/2025. GA: 23 weeks 0 days. Cervix: Visualized. TA. Positioning: Vertex. Amniotic Fluid: 4.1 cm SDP. Placenta: Technique: TA. Placenta Position: Posterior. Dopplers: Heart Rate: 135 bpm. BIOMETRY BPD: 5.5 cm, 22 weeks 4 days. 31% HC: 20.8 cm, 22 weeks 6 days. 31% AC: 18.7 cm, 23 weeks 4 days. 58% FL: 4 cm, 23 weeks 0 days. 37% FL/AC Ratio: 21.41% HC/AC Ratio: 1.11. EFW: 572 grams, 1 lb 4 oz. Age by this US: 23 weeks 1 day. VU by this US: 12/13/2025. Percentile by VU: 52% IMPRESSION: 1. Right renal pelvis measures 3.7 mm, left renal pelvis measures 2.1 mm. These are both within normal limits. 2. Normal cavum septum pellucidum, spine, LVOT, nuchal fold and three vessel trachea view. 3. Sonographic gestational age 23 weeks 1 day and sonographic due date 12/13/2025. Good correlation with dates. 4. Estimated weight 52nd percentile. Abdominal circumference 58th percentile. Alexander Baltazar M.D. Diagnostic Radiologist [email or web address] Transcribed: 2:03 pm DW/Dictated by: Alexander Baltazar MD @ 08/17/2025 1:02:00 PM (Electronically Signed)
== END 2025-08-17 08:02 | disposition home or self-care (01) ==
LOC: US 08:01
PROVIDERS: PCP Nurse Practitioner Family; Visit Provider Advanced Practice Midwife
DX: Z34.92 Encounter for supervision of normal pregnancy, unspecified, second trimester (principal); Z3A.23 23 weeks gestation of pregnancy
CPT/HCPCS: 76816

== ENCOUNTER 2025-09-19 16:31 | Outpatient (CLI) | payer OTHER, SELFPAY | END 2025-09-19 16:32 | disposition home or self-care (01) | LOC: NFLDREF 09-22 03:09 | PROVIDERS: PCP Nurse Practitioner Family; Referring Provider Nurse Practitioner Family; Visit Provider Midwife | DX: Z34.93 Encounter for supervision of normal pregnancy, unspecified, third trimester (principal) | CPT/HCPCS: 86592 ==

== ENCOUNTER 2025-11-17 14:12 | Outpatient (CLI) | payer OTHER, SELFPAY | END 2025-11-17 14:13 | disposition home or self-care (01) | LOC: NFLDREF 11-20 12:49 | PROVIDERS: PCP Nurse Practitioner Family; Referring Provider Nurse Practitioner Family; Visit Provider Advanced Practice Midwife | DX: Z34.93 Encounter for supervision of normal pregnancy, unspecified, third trimester (principal) | CPT/HCPCS: 87081; 87186; 87653 ==